=== PATIENT | male | born 1960 | race Caucasian/White ===

== ENCOUNTER 2018-07-10 15:26 | Inpatient (IN) | payer MEDICARE ==
[2018-07-10 15:36] VITALS: BMI 27.0
[2018-07-10] MEDS: Acetaminophen 325 MG TAB PO PRN (17:55)
[2018-07-10] MEDS: Carvedilol 25 MG TAB PO SCH (21:05)
[2018-07-10] MEDS: hydrALAZINE 25 MG TAB PO SCH (21:06)
[2018-07-10] MEDS: TUMERIC PO SCH (21:06)
[2018-07-10] MEDS: traMADol HCl 50 MG TAB PO PRN (21:07)
[2018-07-11] MEDS: Acetaminophen 325 MG TAB PO PRN ×3 (03:07→23:48)
[2018-07-11] MEDS: traMADol HCl 50 MG TAB PO PRN ×3 (03:08→23:49)
[2018-07-11 05:23] LABS: #Eosinphils 0.2 thou/uL (0.0-0.7); #Lymphocytes 0.7 thou/uL (1.20-3.40); #Monocytes 0.4 thou/uL (0.11-0.59); #Neutrophils 8.4 thou/uL (1.40-6.50); %Basophils 0.4 % (0.0-1.0); %Eosinophils 1.8 % (0.0-10.0); %Lymphocytes 7.3 % (21.0-51.0); %Monocytes 3.6 % (0.0-10.0); %Neutrophils 86.9 % (42.0-75.0); Hemoglobin 8.5 g/dL (14.0-18.0); Mean Corpuscular HGB CONC 32.1 g/dL (32.0-36.0); Mean Corpuscular Hemoglobin 31.4 pg (27.0-31.0); Mean Corpuscular Volume 97.7 fL (78.0-98.0); Mean Platelet Volume 8.1 fL (7.4-10.4); Platelet Count 170 thou/uL (130-400); RBC Distribution Width 12.9 % (11.5-14.5); White Blood Cell (WBC) Count 9.7 thou/uL (4.8-10.8)
[2018-07-11 05:40] LABS: ALT (SGPT) 10 U/L (8-55); AST (SGOT) 15 U/L (5-34); Albumin 2.9 g/dL (3.5-5.0); Alkaline Phosphatase 92 U/L (40-150); Anion Gap 17 mmol/L (10-20); BUN (Urea Nitrogen) 26 mg/dL (8.4-25.7); Bilirubin, Total 0.9 mg/dL (0.2-1.2); Calc. Creatinine Clearance 23 mL/min (70-130); Calcium 8.7 mg/dL (7.8-10.44); Carbon Dioxide 25 mmol/L (22-29); Chloride 94 mmol/L (98-107); Estimated GFR-MDRD 14; Globulin 3.6 g/dL (2.4-3.5); Glucose 208 mg/dL (70-105); Potassium 3.4 mmol/L (3.5-5.1); Protein, Total 6.5 g/dL (6.0-8.3); Sodium 133 mmol/L (136-145)
[2018-07-11] MEDS: Carvedilol 25 MG TAB PO SCH ×3 (08:48→21:31)
[2018-07-11] MEDS: cloNIDine 0.1mg/24 Hour PATCH TD SCH ×2 (08:49→10:12)
[2018-07-11] MEDS: Lisinopril 5 MG TAB PO SCH ×2 (08:49→10:13)
[2018-07-11] MEDS: Folic Acid/Vit B Comp W-C PO SCH ×2 (08:49→10:13)
[2018-07-11] MEDS: hydrALAZINE 25 MG TAB PO SCH ×4 (08:49→21:31)
[2018-07-11] MEDS: Gabapentin 100 MG CAP PO SCH ×2 (08:49→10:13)
[2018-07-11] MEDS: NIFEdipine XL 30 MG TAB PO SCH ×2 (08:50→10:14)
[2018-07-11] MEDS: TUMERIC PO SCH ×3 (08:50→21:32)
[2018-07-11] MEDS: Pioglitazone HCl 15 MG TAB PO SCH (08:50)
[2018-07-11] MEDS: Saccharomyces boulardii 250 MG CAP PO SCH ×2 (08:51→10:14)
[2018-07-11] MEDS ORDERED: Ondansetron ODT 4 MG TAB PO PRN (12:58)
[2018-07-11] MEDS: cloNIDine 0.1 MG TAB PO PRN ×2 (13:33→17:57)
[2018-07-11] MEDS: Ondansetron PF 4 MG/2 ML Vial SLOW IVP PRN (21:26)
--- NOTE | 2018-07-11 21:40 | RAD ---
CHEST ONE VIEW: 07/11/18 HISTORY: 57-year-old male with history of wheezing and right sided neck pain. COMPARISON: 07/04/18. There are progressive alveolar nodular parenchymal changes in the left lung, particularly the mid and lower lung zone as well the right mid lung zone, evidence for bilateral pneumonia. Minimal cardiomeg miguel. IMPRESSION: Bilateral worsening alveolar nodular parenchymal changes including the left mid and lower lung zone a nd right mid lung zone evidence for bilateral pneumonia. Cardiomegaly. Continued short term followup for complete clearing. POS: RRE
[2018-07-12] MEDS: Ondansetron PF 4 MG/2 ML Vial SLOW IVP PRN ×3 (04:11→18:00)
[2018-07-12 05:04] LABS: #Basophils 0.1 thou/uL (0.0-0.2); #Eosinphils 0.2 thou/uL (0.0-0.7); #Lymphocytes 0.8 thou/uL (1.20-3.40); #Monocytes 0.4 thou/uL (0.11-0.59); #Neutrophils 8.1 thou/uL (1.40-6.50); %Basophils 0.5 % (0.0-1.0); %Eosinophils 1.6 % (0.0-10.0); %Lymphocytes 8.2 % (21.0-51.0); %Monocytes 4.2 % (0.0-10.0); %Neutrophils 85.5 % (42.0-75.0); Hemoglobin 8.2 g/dL (14.0-18.0); Mean Corpuscular HGB CONC 33.2 g/dL (32.0-36.0); Mean Corpuscular Hemoglobin 32.1 pg (27.0-31.0); Mean Corpuscular Volume 96.7 fL (78.0-98.0); Mean Platelet Volume 7.2 fL (7.4-10.4); Platelet Count 150 thou/uL (130-400); RBC Distribution Width 13.2 % (11.5-14.5); Red Blood Cell (RBC) Count 2.56 mill/uL (4.70-6.10); White Blood Cell (WBC) Count 9.4 thou/uL (4.8-10.8)
[2018-07-12 05:22] LABS: Anion Gap 15 mmol/L (10-20); BUN (Urea Nitrogen) 26 mg/dL (8.4-25.7); Calc. Creatinine Clearance 22 mL/min (70-130); Calcium 8.9 mg/dL (7.8-10.44); Carbon Dioxide 27 mmol/L (22-29); Chloride 95 mmol/L (98-107); Estimated GFR-MDRD 14; Glucose 182 mg/dL (70-105); Potassium 3.2 mmol/L (3.5-5.1); Sodium 134 mmol/L (136-145)
[2018-07-12] MEDS: Carvedilol 25 MG TAB PO SCH ×2 (08:08→21:47)
[2018-07-12] MEDS: Folic Acid/Vit B Comp W-C PO SCH (08:10)
[2018-07-12] MEDS: Gabapentin 100 MG CAP PO SCH (08:10)
[2018-07-12] MEDS: hydrALAZINE 25 MG TAB PO SCH ×3 (08:11→21:46)
[2018-07-12] MEDS: Lisinopril 5 MG TAB PO SCH (08:11)
[2018-07-12] MEDS: TUMERIC PO SCH ×3 (08:12→21:47)
[2018-07-12] MEDS: NIFEdipine XL 30 MG TAB PO SCH (08:12)
[2018-07-12] MEDS: Pioglitazone HCl 15 MG TAB PO SCH (08:13)
[2018-07-12] MEDS: Saccharomyces boulardii 250 MG CAP PO SCH (08:13)
[2018-07-12] MEDS: traMADol HCl 50 MG TAB PO PRN ×2 (08:13→19:30)
[2018-07-12] MEDS: cloNIDine 0.1 MG TAB PO PRN (08:14)
[2018-07-12] MEDS: Acetaminophen 325 MG TAB PO PRN ×2 (08:14→19:29)
--- NOTE | 2018-07-12 08:16 | RAD ---
CHEST PA AND LATERAL: HISTORY: A 57-year-old male with a history of congestive heart failure. FINDINGS: Cardiomegaly with bilateral vascular congestion. Alveolar nodular parenchymal changes in the left mi d and lower lung zones and also in the right upper lung zone, stable from 07/11/2018 single portable study. IMPRESSION: Asymmetric alveolar parenchymal changes in the left mid and lower lung zone and right upper mid lung zone with cardiomegaly and vascular congestion showing some worsening when compared to 07/04/2018, st able from 07/11/2018. POS: KAMALA
[2018-07-12] MEDS ORDERED: Sodium Chloride 0.9% 10 ML ONE ×2 (10:06→17:51)
--- NOTE | 2018-07-12 18:55 | PRG ---
DATE OF SERVICE: 07/12/2018 SUBJECTIVE: Patient is nauseated this morning, but not particular respiratory distress; however, he has agreed to dialysis as his chest x-ray still shows significant bilateral pulmonary congestion. OBJECTIVE: VITAL SIGNS: Temperature is 97.9, pulse 53, respirations 20, O2 sats 94% on 2 liters, blood pressure 201/88. LUNGS: Show bibasilar rales. CARDIAC: Regular rhythm. SKIN AND EXTREMITIES: Show no edema, clubbing, cyanosis. LABORATORY DATA: His potassium down to 3.2, creatinine is 4.49, bicarbonate 27, chloride 95, glucose is 164-191. ASSESSMENT: 1. Persistent fluid overload secondary to inadequate dialysis. 2. Hypokalemia secondary to recurrent vomiting. 3. Severe hypertension exacerbated by vomiting. PLAN: Continue home medications. Give IV Zofran, transport to [facility] for emergent dialysis after dis cussion with the patient and Dr. Bowman.
--- NOTE | 2018-07-12 19:16 | PRG ---
DATE OF SERVICE: 07/11/2018 SUBJECTIVE: The patient is having recurrent nausea and vomiting, dyspnea, mild respiratory distress requiring oxygen. No chest pains or headaches. OBJECTIVE: VITAL SIGNS: Blood pressure is 211/92, pulse 57, respirations 20, O2 sats 94% on 2 liters. LUNGS: Show bibasilar rales, worse on the left side. A chest x-ray shows significantly increased pu lmonary congestion as compared to admission. ABDOMEN: Soft and nontender. ASSESSMENT: 1. Fluid overload secondary to inadequate fluid removal at dialysis. 2. Recurrent nausea secondary to . 3. Severe hypertension exacerbated by vomiting. PLAN: 1. Stress need to have more fluid removed. Start IV Zofran. Reiterated by the patient that he is n ot to be resuscitated, does not want to be back admitted to [place]. 2. Convince the patient to have dialysis in the a.m. Continue IV Zofran only. Continue blood press ure control with clonidine, hydralazine, amlodipine, and carvedilol.
--- NOTE | 2018-07-12 22:18 | HP ---
CHIEF COMPLAINT: Acute exacerbation of chronic renal failure with uremic poisoning, pulmonary edema, responding to aggressive dialysis, but with significant weakness and inability to maintain ADLs. HISTORY OF PRESENT ILLNESS: The patient is a 57-year-old white male with a long history of hypertens ion, diabetes with poor control with subsequent complication, end-stage renal disease on hemodialysis 3 times weekly as well as diabetic retinopathy, atrial fibrillation with a history of a left atrial thrombus, but with no CVA, but with severe peripheral vascular disease requiring amputation of the [facility] distal foot, who had refused dialysis and essentially had become suicidal and depressed, but even amari was convinced to go to [facility] where he was found to be uremic poisoning, aggressively di alyzed, slowly but surely improved, but became very weak and unable to maintain ADLs and was transfer red over to [facility]. Apparently, he had had some pulmonary infiltrates previously with a questionable history of pneumonia and was discharged on oral antibiotics of Levaquin 500 mg every other day in addition to his blood p ressure medicines of Coreg 25 twice daily, hydralazine 100 three times daily, lisinopril 5 daily, Pro cardia-XL 60 daily, and his diabetes medicine of Actos 30 daily, Florastor 250 mg daily, probiotic wa s given also on admission to [facility]. His white count was 8000, hemoglobin 9.3, platelets 188. Sodium is 132, potassium is 3.5, BUN is 42, creatinine is 5.0. Stool was guaiac negative. C. diff negative. Liver functions were normal. He is requiring dialysis on Friday, Friday, and Friday, has had some problems with volume overload, s hortness of breath as well as recurrent nausea and vomiting from uremic encephalopathy with a junctio nal cardiac arrhythmia. SOCIAL HISTORY: He lives alone. He has one daughter. He has a past history of severe ETOH abuse. No history of smoking. He is a DNR. Surrogate decision maker is his daughter. ALLERGIES: He has no known allergies. REVIEW OF SYSTEMS: HEENT: Denies any headaches. He has decreased vision secondary to diabetic reti nopathy. He has no hoarseness, sore throat. Pulmonary: He has occasional cough. He was initially coughing up a great deal of bloody sputum, but now is nonproductive. Cardiovascular: Denies any asher st pain, palpitations, dizziness, syncope. Gastrointestinal: He has recurrent nausea, vomiting, and diarrhea, felt to be due to uremic poisoning, which is improved, but still present. Genitourinary: Denies dysuria or hematuria. Has minimal urine output. Musculoskeletal: He has pain in his feet. Neurologic: He has severe neuropathy of the feet. PHYSICAL EXAMINATION: GENERAL: The patient is a middle-aged white male, appears chronically ill, in mild distress. He is oriented x3 and cooperative, but has been making irrational decisions, but denies suicidal attempts a t this time. VITAL SIGNS: Show him to have blood pressure of 182/84, temperature of 99, pulse 67, respirations 20 , O2 sats 96% on room air. HEENT: Pupils are equal, round, and reactive to light and accommodations. Sclerae are pale. Conjun ctivae are pale. Oral mucous membranes are dehydrated. NECK: Supple. There are no nodes or masses. JVPs are not elevated. LUNGS: Show bibasilar rales. No wheezes or rhonchi. CARDIAC: Shows slow regular rhythm. No gallops or murmurs. ABDOMEN: Soft, nontender. No masses or organomegaly. SKIN/EXTREMITIES: Showed decreased skin turgor. No edema, clubbing, or cyanosis. NEUROLOGICAL: Shows decreased sensation to pinprick in the feet. LABORATORY FINDINGS: White count 8000, hematocrit 29, hemoglobin 9. Sodium 132, potassium 3.5, chlo ride 95, bicarbonate 21, BUN 42, creatinine 0.7, albumin 3.0, globulin 3.9, AST 15, ALT 10, calcium 8 .9. ASSESSMENT: This is a 57-year-old white male with end-stage renal disease who has refused hemodialys is, developed uremic poisoning, now is back on dialysis. Still very weak, eating poorly, does have r ecurrent nausea and has rales on examination. He is being treated for pneumonia with Levaquin every other day. He is having no sputum production, fever or chills. He also is being treated aggressivel y for his hypertension, which has been uncontrolled of hydralazine, lisinopril, nifedipine, and cloni dine. He is on peptic ulcer prophylaxis with Protonix. PLAN: PT/OT. Continue hemodialysis 3 times weekly. Continue Levaquin every other day. Continue pr evious blood pressure medications and monitor closely. Give hand held nebulizers with DuoNeb q.i.d. and p.r.n. Stress the need to continue dialysis to maintain euvolemia. Prognosis is poor secondary to underlying condition and the patient's refusal to care for himself.
[2018-07-13] MEDS: Ondansetron PF 4 MG/2 ML Vial SLOW IVP PRN ×3 (00:16→16:52)
[2018-07-13] MEDS ORDERED: Sodium Chloride 0.9% 10 ML ONE ×2 (07:49→16:49)
[2018-07-13] MEDS: Saccharomyces boulardii 250 MG CAP PO SCH (08:01)
[2018-07-13] MEDS: NIFEdipine XL 30 MG TAB PO SCH (08:02)
[2018-07-13] MEDS: hydrALAZINE 25 MG TAB PO SCH ×3 (08:02→15:13)
[2018-07-13] MEDS: Lisinopril 5 MG TAB PO SCH (08:02)
[2018-07-13] MEDS: Gabapentin 100 MG CAP PO SCH (08:02)
[2018-07-13] MEDS: Folic Acid/Vit B Comp W-C PO SCH (08:03)
[2018-07-13] MEDS: TUMERIC PO SCH ×3 (08:03→20:19)
[2018-07-13] MEDS: Carvedilol 25 MG TAB PO SCH (08:03)
[2018-07-13] MEDS: Pioglitazone HCl 15 MG TAB PO SCH (08:03)
--- NOTE | 2018-07-13 08:06 | PRG ---
DATE OF SERVICE: 07/12/2018 SUBJECTIVE: The patient is a 57-year-old gentleman being seen for a sudden onset of pulmonary edema. No nausea, vomiting, or chest pain. The patient has had dyspnea on and off. PAST MEDICAL HISTORY: Reviewed. SOCIAL AND FAMILY HISTORY: Reviewed. ALLERGIES: Reviewed. PHYSICAL EXAMINATION: GENERAL: The patient is awake, alert, in mild to moderate distress. VITAL SIGNS: Afebrile, pulse 75, breathing 16, blood pressure 130/70. GENERAL APPEARANCE AND MENTAL STATUS: Fair. HEAD/NECK: Normocephalic. Atraumatic. EYES: EOMI. No deformity. EARS: Clear. No ulcers. NOSE: Intact. No lesions. MOUTH: Clear. No discharge. THROAT: Clear. No exudate. LUNGS: Clear. No crackles. CARDIAC: S1, S2. No rub. ABDOMEN: Benign. BS+. GENITALIA/RECTUM: Romano absent. BACK/EXTREMITIES: Edema 0+ Ulcer- NEUROLOGICAL: Alert and motor intact. SKIN: Rash- Bruise- LYMPHATICS: Edema- Ulcer- LABORATORY DATA: Show potassium was 3.8, creatinine 4.4. ASSESSMENT: 1. Stage 6 chronic kidney disease. We will plan dialysis. 2. Hypertension, stable. The patient can be discharged after dialysis. [facility]
--- NOTE | 2018-07-13 10:31 | PRG ---
DATE OF SERVICE: 07/13/2018 HISTORY OF PRESENT ILLNESS: Mr. Chahal is a very pleasant 57-year-old white male with end-stage re nal disease that missed some dialysis and had to be admitted acutely uremic. He was dialyzed at [facility] multiple times and eventually transferred down to [facility] for phys ical therapy and occupational therapy to increase his strength and his stamina. He still gets dialys is on Friday, and Friday, but he has been dialyzed every day this week. PHYSICAL EXAMINATION: VITAL SIGNS: Today reveal blood pressure is 128/82 now, last night it was 204/91, pulse 45-49, pulse 45-49, respirations 18-20, O2 sat 91%-93% on 2-2.5 liters per nasal cannula. GENERAL: This is a well-developed, well-nourished, very thin white male with cardiomegaly, congestiv e heart failure and coronary artery disease. HEENT: Reveals normocephalic, nontraumatic cranium. Pupils are equally round and reactive. Extraoc ular movements are intact. Nose and throat are slightly dry. NECK: Supple, without mass, nodes or bruits. LUNGS: Chest is clear to auscultation. No rales are heard on the right side, but rales in the left base are noted. No rhonchi or cough is noted. HEART: Reveals a regular rate and rhythm, but bradycardic. ABDOMEN: Obese, soft, nontender, without organomegaly. Normal bowel sounds are noted. No rebound o r guarding is noted. : Deferred. EXTREMITIES: Reveal no clubbing, cyanosis or edema. IMPRESSION: 1. Persistent fluid overload secondary to inadequate dialysis. 2. Hypokalemia secondary to vomiting. 3. Severe hypertension, much improved today. 4. End-stage renal disease. 5. Coronary artery disease with cardiomegaly. 6. Diabetes with poor control in the past. 7. Diabetic retinopathy. 8. History of atrial fibrillation with history of left atrial thrombus but no CVA. 9. Severe peripheral vascular disease with amputation of right distal foot. PLAN: 1. Continue to monitor the patient's diabetes with Accu-Cheks a.c. and at bedtime. 2. Continue to monitor the patient's respiratory status as far as fluid. 3. Continue to monitor patient for signs and symptoms of congestive heart failure. 4. Start the patient on some medication for anxiety depressive disorder. 5. Continue to monitor the patient's blood pressure closely. 6. Physical therapy and occupational therapy.
[2018-07-13] MEDS ORDERED: Escitalopram Oxalate 10 mg Tablet PO SCH (10:45)
[2018-07-13] MEDS: Escitalopram Oxalate 10 mg Tablet PO SCH (11:15)
[2018-07-13] MEDS: Calcium Carbonate 500 MG ChewTAB PO SCH ×3 (14:09→20:28)
[2018-07-13] MEDS: Acetaminophen 325 MG TAB PO PRN (14:09)
[2018-07-13] MEDS: traMADol HCl 50 MG TAB PO PRN (20:22)
[2018-07-14] MEDS: Acetaminophen 325 MG TAB PO PRN (00:10)
[2018-07-14] MEDS ORDERED: Sodium Chloride 0.9% 10 ML ONE (02:12)
[2018-07-14] MEDS: Ondansetron PF 4 MG/2 ML Vial SLOW IVP PRN ×2 (02:16→17:14)
[2018-07-14] MEDS: Pioglitazone HCl 15 MG TAB PO SCH (05:40)
[2018-07-14] MEDS: Calcium Carbonate 500 MG ChewTAB PO SCH ×3 (12:20→20:21)
[2018-07-14] MEDS: Folic Acid/Vit B Comp W-C PO SCH (12:20)
[2018-07-14] MEDS: NIFEdipine XL 30 MG TAB PO SCH (12:21)
[2018-07-14] MEDS: Lisinopril 5 MG TAB PO SCH (12:21)
[2018-07-14] MEDS: Saccharomyces boulardii 250 MG CAP PO SCH (12:21)
[2018-07-14] MEDS: Gabapentin 100 MG CAP PO SCH (12:21)
[2018-07-14] MEDS: Carvedilol 25 MG TAB PO SCH ×2 (12:23→20:21)
[2018-07-14] MEDS: TUMERIC PO SCH ×3 (12:23→20:22)
[2018-07-14] MEDS: traMADol HCl 50 MG TAB PO PRN ×2 (12:25→20:22)
--- NOTE | 2018-07-14 21:01 | PRG ---
DATE OF SERVICE: 07/14/2018 SUBJECTIVE: Mr. Chahal is a very pleasant 57-year-old white male with end- stage renal disease, who missed several days of dialysis and had to be admitted acutely to [facility], where he was emergently dialyzed. His potassium was extremely elevated. His creatinine was elevated. Basically, he was stabilized and now has been transferred down to [facility] for physical therapy and occupational therapy. The patient is going to dialysis today. He has dialysis on Friday, , Friday by Dr. Bowman and Dr. Luis Monsivais. The patient walked yesterday approximately 15 feet, was very weak and had significant balance problems. It is felt that he needs continued physical therapy and occupational therapy. His blood pressures have been low with vital signs this morning running in the low 90s. We did cut his carvedilol in half because his pulse was 40 to 45. His carvedilol was 25 mg, we have decreased that down to 12.5 mg b.i.d. We did pull off his clonidine patch last night also so that his blood pressure would bounce back. Blood pressure this afternoon is 113/55, 111/58, pulse is up in the 48 to 50 range. HEENT: Unremarkable Chest: Clear to A&P Heart: RRR without murmurs, gallops, or rubs Abdomen: positive bowel sounds in all quadrants. : deferred Extremities: No clubbing, Cyanosis or edema. Neuro: Oriented x 3 The patient tolerated dialysis fairly well today. He has no complaints. IMPRESSION: 1. Persistent fluid overload secondary to inadequate dialysis, much improved. 2. Uremia much improved. 3. Severe hypertension, much improved. 4. Hypotensive yesterday and bradycardic yesterday, so we did decrease his carvedilol from 25 mg b.i.d. to 12.5 mg b.i.d. 5. We did also pull off his clonidine patch in hopes that his blood pressure wound rebound. 6. End-stage renal disease, followed by Dr. Bowman and Dr. Monsivais, and he has hemodialysis on Friday, , and Friday. 7. Coronary artery disease with cardiomegaly. 8. Diabetes, poor control in the past. 9. Diabetic retinopathy. 10. History of atrial fibrillation. 11. History of left atrial thrombus, but no cerebrovascular accident. 12. Severe peripheral vascular disease, amputation of the right distal foot. PLAN: 1. Continue to monitor the patient's diabetes with Accu-Chek a.c. and nighttime. 2. We will monitor the patient's respiratory status. 3. We will monitor the patient for signs and symptoms of congestive heart failure. 4. Continue to monitor the patient's blood pressure and adjust medications as needed. 5. Continue physical therapy and occupational therapy. LABORATORY DATA: Revealed sugars have been improved with fasting this morning of 193 before breakfast, before lunch sugar was not done because the patient was at dialysis. We will continue to monitor closely and adjust his diabetic medications as needed. Job ID: [id number] [facility]
[2018-07-15] MEDS ORDERED: Sodium Chloride 0.9% 10 ML ONE ×2 (00:52→07:24)
[2018-07-15] MEDS: Ondansetron PF 4 MG/2 ML Vial SLOW IVP PRN ×2 (00:55→07:29)
[2018-07-15] MEDS: Acetaminophen 325 MG TAB PO PRN ×2 (01:00→20:57)
[2018-07-15] MEDS: Carvedilol 25 MG TAB PO SCH ×2 (08:47→20:54)
[2018-07-15] MEDS: Calcium Carbonate 500 MG ChewTAB PO SCH ×3 (08:47→20:54)
[2018-07-15] MEDS: Lisinopril 5 MG TAB PO SCH (08:48)
[2018-07-15] MEDS: Escitalopram Oxalate 10 mg Tablet PO SCH (08:48)
[2018-07-15] MEDS: Gabapentin 100 MG CAP PO SCH (08:48)
[2018-07-15] MEDS: Folic Acid/Vit B Comp W-C PO SCH (08:48)
[2018-07-15] MEDS: NIFEdipine XL 30 MG TAB PO SCH (08:49)
[2018-07-15] MEDS: Pioglitazone HCl 15 MG TAB PO SCH (08:49)
[2018-07-15] MEDS: Saccharomyces boulardii 250 MG CAP PO SCH (08:49)
[2018-07-15] MEDS: traMADol HCl 50 MG TAB PO PRN ×2 (08:50→20:55)
[2018-07-15] MEDS: TUMERIC PO SCH ×3 (08:52→20:55)
[2018-07-15] MEDS ORDERED: Insulin Glargine 10 UNITS in Pre-Filled Syringe 1 EACH SC SCH (09:45)
--- NOTE | 2018-07-15 11:17 | PRG ---
DATE OF SERVICE: 07/15/2018 HISTORY: The patient is a 57-year-old white male with end-stage renal disease, who missed some dialysis and had to be admitted acutely to [facility]. He had multiple dialysis and eventually was stabilized. He was transferred to [facility] for PT and OT because he was so weak and unable to really even stand. First day, he walked 4 feet, the next about 8 feet, and yesterday he walked 100 plus feet. His dialysis is on Friday, , and Friday. SUBJECTIVE: The patient states he feels slightly better, but his sugars are still little high and he feels tired from that. LABORATORY DATA: Laboratory reveals sugar yesterday morning of 193, before lunch it was missed because he was at dialysis, before supper 202, before bedtime 185, this morning fasting 199. We will add some Levemir to his present diabetic regimen. PHYSICAL EXAMINATION: VITAL SIGNS: Today reveal blood pressure 104/57, pulse 41, respirations 20, and O2 sat 94% on 3 L per nasal cannula. GENERAL: This is a well-developed, well-nourished white male, and in no apparent distress at this time. HEENT: Reveals normocephalic, nontraumatic cranium. Pupils equally round and reactive. Extraocular movements intact. Nose and throat are still slightly dry. NECK: Supple without masses bruits. CHEST: Clear to auscultation. No rales, no rhonchi, or no wheezes are heard today. HEART: Reveals a regular rate and rhythm, still bradycardic at 41 today, the highest he got yesterday was 48. ABDOMEN: Obese, soft, nontender without organomegaly. Normal bowel sounds are noted in all 4 quadrants. No rebound or guarding is noted. : Deferred. EXTREMITIES: No clubbing, cyanosis, or edema. IMPRESSION: 1. End-stage renal disease, on hemodialysis Friday, , and Friday by Dr. Bowman and Dr. Monsivais. 2. Hypertension, which is basically stable at this time. 3. Bradycardia. 4. Coronary artery disease with cardiomegaly. 5. Diabetes with poor control in the past. 6. Diabetic retinopathy. 7. Atrial fibrillation with history of left atrial thrombus, but no CVA. 8. Severe peripheral vascular disease with amputation of right distal foot. 9. Generalized weakness. PLAN: 1. Continue to monitor the patient's diabetes with Accu-Cheks before a meal and at bedtime. 2. Start Levemir 10 units subcu daily. 3. Monitor the patient's electrolytes through dialysis. 4. Continue to monitor the patient's blood pressure closely and adjust medications as needed. 5. Cut the patient's carvedilol from 12.5 mg down to 6.25 mg daily. 6. Monitor the patient's signs and symptoms of congestive heart failure. 7. Monitor the patient's heart rate for RVR. 8. Physical therapy and occupational therapy. Job ID: [id number]
[2018-07-15] MEDS ORDERED: Lantus 1000 UNITS/10 ML VIAL SC SCH (14:15)
[2018-07-16] MEDS: Calcium Carbonate 500 MG ChewTAB PO SCH ×3 (08:48→20:43)
[2018-07-16] MEDS ORDERED: Carvedilol 25 MG TAB PO SCH (10:15)
[2018-07-16 11:06] LABS: #Basophils 0.1 thou/uL (0.0-0.2); #Eosinphils 0.2 thou/uL (0.0-0.7); #Lymphocytes 0.7 thou/uL (1.20-3.40); #Monocytes 0.3 thou/uL (0.11-0.59); #Neutrophils 8.9 thou/uL (1.40-6.50); %Basophils 0.8 % (0.0-1.0); %Eosinophils 1.7 % (0.0-10.0); %Lymphocytes 6.6 % (21.0-51.0); %Monocytes 3.1 % (0.0-10.0); %Neutrophils 87.8 % (42.0-75.0); Hemoglobin 8.6 g/dL (14.0-18.0); Mean Corpuscular HGB CONC 33.4 g/dL (32.0-36.0); Mean Corpuscular Hemoglobin 31.8 pg (27.0-31.0); Mean Corpuscular Volume 95.4 fL (78.0-98.0); Mean Platelet Volume 7.7 fL (7.4-10.4); Platelet Count 198 thou/uL (130-400); Red Blood Cell (RBC) Count 2.69 mill/uL (4.70-6.10); White Blood Cell (WBC) Count 10.1 thou/uL (4.8-10.8)
[2018-07-16 11:18] LABS: Anion Gap 15 mmol/L (10-20); BUN (Urea Nitrogen) 25 mg/dL (8.4-25.7); Calc. Creatinine Clearance 22 mL/min (70-130); Calcium 9.2 mg/dL (7.8-10.44); Carbon Dioxide 28 mmol/L (22-29); Chloride 93 mmol/L (98-107); Estimated GFR-MDRD 14; Glucose 131 mg/dL (70-105); Sodium 133 mmol/L (136-145)
[2018-07-16 11:20] LABS: CKMB 1.3 ng/mL (0-6.6); Troponin I 0.038 ng/mL (< 0.028)
[2018-07-16] MEDS: Escitalopram Oxalate 10 mg Tablet PO SCH (11:23)
[2018-07-16] MEDS: Folic Acid/Vit B Comp W-C PO SCH (11:24)
[2018-07-16] MEDS: Gabapentin 100 MG CAP PO SCH (11:24)
[2018-07-16] MEDS: Lantus 1000 UNITS/10 ML VIAL SC SCH (11:25)
[2018-07-16] MEDS: Lisinopril 5 MG TAB PO SCH (11:26)
[2018-07-16] MEDS: NIFEdipine XL 30 MG TAB PO SCH (11:27)
[2018-07-16] MEDS: Pioglitazone HCl 15 MG TAB PO SCH (11:29)
[2018-07-16] MEDS: TUMERIC PO SCH ×3 (11:29→20:44)
[2018-07-16] MEDS: Saccharomyces boulardii 250 MG CAP PO SCH (11:30)
--- NOTE | 2018-07-16 11:33 | PRG ---
DATE OF SERVICE: 07/16/2018 SUBJECTIVE: This is a 57-year-old white male, who missed several hemodialysis sessions. He was found and brought to the emergency room, was found to be in uremic poisoning. He was admitted to the intensive care unit and had an emergency dialysis. Eventually, he was stabilized and transferred to [facility] for physical therapy and occupational therapy to increase his strength and his stamina. The patient had dialysis day before yesterday and was very weak. He was able to walk a little bit that day. Yesterday, he was hypotensive even though we have decreased his Coreg from 25 down to 12.5. Every time he tried to stand up, he became more hypotensive and was unable to do much therapy except for bed exercises. His blood pressure and his pulse basically still remain in the 40s and therefore, we have cut his Procardia XL 60 down to XL 30 and decreased his Coreg from 12.5 to 6.25 b.i.d. The patient is at dialysis at this time and those changes will be made prior to any more doses. Yesterday, we did increase his Levemir insulin and started at 10 mg once a day. His sugars have responded by having a fasting this morning of 145. His sugars yesterday were 199, 201, 196, 178, which were much better than the prior day. The prior day, almost all of his sugars were in the 200s. Overall, the patient is slowly improving and getting little stronger. PHYSICAL EXAMINATION: GENERAL: Revealed this is a well-developed, well-nourished white male in no apparent distress. VITAL SIGNS: Today revealed blood pressure this morning 99/52 with a pulse of 39, repeat was 110/58 with a pulse of 42. Yesterday, the highest blood pressure was 115/58 and the highest pulse was 42. As mentioned before, we did decrease his carvedilol down to 6.25 b.i.d. and decreased his Procardia down to 30 mg XL daily. HEART: Reveals regular rate and rhythm. CHEST: Clear to ausculation. No rales, rhonchi, or wheezes are heard. ABDOMEN: Soft and nontender without organomegaly. Normal bowel sounds are noted. : Deferred. EXTREMITIES: Revealed no clubbing, cyanosis, or edema. IMPRESSION: 1. Hypotension. 2. End-stage renal disease, on hemodialysis Friday, , and Friday. 3. Bradycardia. 4. Coronary artery disease with cardiomegaly. 5. Diabetes with poor control in the past, much improved. 6. Diabetic retinopathy. 7. Atrial fibrillation with history of left atrial thrombus, but no cerebrovascular accident. 8. Severe peripheral vascular disease with amputation of the right distal foot. 9. Generalized weakness. PLAN: 1. As mentioned before, decrease Coreg to 6.25 b.i.d. 2. Decrease Procardia XL to 30 mg daily. 3. Levemir was started 10 units subcutaneous once a day. 4. Encourage the patient to do physical therapy and occupational therapy. 5. Continue to monitor the patient's Accu-cheks for his diabetes a.c. and at bedtime. 6. Continue to monitor the patient's blood pressure closely. 7. Monitor the patient for signs and symptoms of congestive heart failure. 8. Monitor the patient's heart rate for RVR. 9. Continue physical therapy and occupational therapy. Job ID: [id number]
--- NOTE | 2018-07-16 11:46 | RAD ---
SINGLE VIEW OF THE CHEST: Comparison: 07-12-18 History: Lethargy. Decreased oxygen saturation. FINDINGS: Single view of the chest shows an enlarged but stable cardiomediastinal silhouette. Bilateral perihil ar opacities may represent pulmonary vascular congestion. There is no evidence of consolidation, mass or pleural effusion. IMPRESSION: Cardiomegaly and bilateral pulmonary vascular congestion. POS: [facility]
[2018-07-16] MEDS: Carvedilol 25 MG TAB PO SCH ×2 (11:49→20:41)
[2018-07-16 11:56] LABS: Potassium 2.9 mmol/L (3.5-5.1)
[2018-07-16] MEDS ORDERED: Sodium Chloride 0.9% 10 ML ONE (15:05)
[2018-07-16] MEDS: Ondansetron PF 4 MG/2 ML Vial SLOW IVP PRN (15:09)
[2018-07-16] MEDS: Acetaminophen 325 MG TAB PO PRN (18:59)
[2018-07-16] MEDS: traMADol HCl 50 MG TAB PO PRN (18:59)
[2018-07-17] MEDS: Calcium Carbonate 500 MG ChewTAB PO SCH ×3 (09:00→20:53)
[2018-07-17] MEDS: Saccharomyces boulardii 250 MG CAP PO SCH (09:01)
[2018-07-17] MEDS: Escitalopram Oxalate 10 mg Tablet PO SCH (09:03)
[2018-07-17] MEDS: Gabapentin 100 MG CAP PO SCH (09:04)
[2018-07-17] MEDS: Carvedilol 25 MG TAB PO SCH ×2 (09:04→20:52)
[2018-07-17] MEDS: Lisinopril 5 MG TAB PO SCH (09:07)
[2018-07-17] MEDS: Pioglitazone HCl 15 MG TAB PO SCH (09:09)
[2018-07-17] MEDS: TUMERIC PO SCH ×3 (09:10→20:53)
[2018-07-17] MEDS: Folic Acid/Vit B Comp W-C PO SCH (09:17)
[2018-07-17] MEDS: NIFEdipine XL 30 MG TAB PO SCH ×2 (09:18→10:03)
[2018-07-17] MEDS: Lantus 1000 UNITS/10 ML VIAL SC SCH (09:24)
--- NOTE | 2018-07-17 16:41 | PRG ---
DATE OF SERVICE: 07/17/2018 Mr. Chahal is a 57-year-old, very pleasant, white male, who missed several hemodialysis sessions and was found at home confused, lethargic, and uremic. He was brought to the emergency intensive care unit. Eventually, he was stabilized and recovered. He was transferred to [facility] because of extreme weakness. He was transferred there for physical therapy and occupational therapy. SUBJECTIVE: The patient states he feels good except he has extreme weakness, and his speech is somewhat slurred. He was thought to have some weakness on his left side, but on my examination, he does not. The patient was seen today about 12:30, and he states he is feeling better, but he is still very weak. His blood pressure is much improved after we cut his Coreg from 25 down to 6.25 and his Procardia from 60 to 30. His blood pressure is running 120 to 130 systolic. His pulse is up from 39 to 40 up to 48 to 52. He states he feels much better. He is just very weak. I did talk with Physical Therapy, and they said this morning, they just did bed exercise because when he sat down on the side of the bed, he was still very weak. We will try to continue to correct his blood pressure and his medications. Adjust his medications when his blood pressure is so low. He is supposed to have dialysis again tomorrow. They have not pulled off a lot of fluid because his blood pressure has been low. He has begun to collect some fluids, and he does have cardiomegaly and has had some congestive heart failure problems. Hopefully, his blood pressure will be better, and they can pull off more fluids tomorrow. PHYSICAL EXAMINATION: VITAL SIGNS: At this time reveal blood pressure 130/67, pulse 52, respirations about 16, and O2 sat 96% on 4 L. GENERAL: This is a well-developed, well-nourished, white male, in no apparent distress at this time. He does have slurred speech, but he has no facial weakness. HEENT: Reveals normocephalic, nontraumatic cranium. The pupils are equally round and reactive. Extraocular movements are intact. Nose and throat are dry, but clear. NECK: Supple without masses, nodes, or bruits. CHEST: Clear to auscultation. No rales, rhonchi, or wheezes are heard. HEART: Reveals a regular rate and rhythm without murmurs, gallops, or rubs. ABDOMEN: Soft, nontender without organomegaly. Normal bowel sounds are noted. No rebound or guarding is noted. : Deferred. EXTREMITIES: Reveal no clubbing, cyanosis, or edema. IMPRESSION: 1. Hypotension, much improved. 2. Bradycardia, much improved. 3. End-stage renal disease, on hemodialysis Friday, , and Friday, and the patient only had 0.4 liters taken off on . 4. Coronary artery disease with cardiomegaly according to the chest x-ray with pulmonary vascular congestion. 5. Diabetes with poor control in the past, which is much improved. 6. Diabetic retinopathy. 7. History of atrial fibrillation with left atrial thrombus, but no cerebrovascular accident. 8. Severe peripheral vascular disease with amputation of the right distal foot. 9. Generalized weakness. PLAN: 1. Continue present Coreg at 6.25 b.i.d., and Procardia XL at 30 mg. 2. Continue Levemir 10 units subcu each day. 3. Encourage the patient to exercise while on bed over the weekend since he will not get therapy. 4. Continue to monitor the patient's Accu-Cheks a.c. and at bedtime. 5. Monitor the patient's blood pressure closely. 6. Monitor the patient for signs and symptoms of congestive heart failure. 7. Monitor the patient's heart rate for RVR. 8. Continue PT and OT. Job ID: [id number]
[2018-07-18] MEDS: Pioglitazone HCl 15 MG TAB PO SCH (13:20)
[2018-07-18] MEDS: Folic Acid/Vit B Comp W-C PO SCH (13:20)
[2018-07-18] MEDS: NIFEdipine XL 30 MG TAB PO SCH (13:20)
[2018-07-18] MEDS: Saccharomyces boulardii 250 MG CAP PO SCH (13:21)
[2018-07-18] MEDS: Lisinopril 5 MG TAB PO SCH (13:21)
[2018-07-18] MEDS: Carvedilol 25 MG TAB PO SCH (13:21)
[2018-07-18] MEDS: Gabapentin 100 MG CAP PO SCH (13:21)
[2018-07-18] MEDS: Escitalopram Oxalate 10 mg Tablet PO SCH (13:22)
[2018-07-18] MEDS: Calcium Carbonate 500 MG ChewTAB PO SCH ×3 (13:22→20:26)
[2018-07-18] MEDS: Lantus 1000 UNITS/10 ML VIAL SC SCH (13:24)
[2018-07-18] MEDS: TUMERIC PO SCH ×3 (13:33→20:26)
--- NOTE | 2018-07-18 16:38 | PRG ---
DATE OF SERVICE: 07/18/2018 Mr. Chahal is a very pleasant 57-year-old white male, who missed several hemodialysis sessions and was found very confused and uremic at home. He was brought to the Intensive Care Unit at [facility], admitted, placed on BiPAP. Eventually, he was stabilized and had emergent dialysis for several days. Eventually, he was stabilized and transferred to [facility] for extreme weakness. He is here for physical therapy and occupational therapy. SUBJECTIVE: The patient states he feels a little bit better today. His voice is not slurred, but he continues to have significant weakness. He has no complaints today. He did have dialysis this morning and the nurse reports that Dr. Monsivais recommended stopping his Coreg. He is still on Procardia XL 30. OBJECTIVE: VITAL SIGNS: Vital signs today revealed blood pressure 130/67, pulse 48, respirations 20, and O2 saturation 96% on 2.5 L. GENERAL: This is a well-developed, well-nourished, very pleasant white male, in no apparent distress at this time. HEENT: Reveals normocephalic and nontraumatic cranium. Pupils are equally round and reactive. Extraocular movements are intact. Nose and throat are slightly dry. NECK: Supple without masses, nodes, or bruits. CHEST: Clear to auscultation. No rales, rhonchi, or wheezes are heard. HEART: Reveals a regular rate and rhythm without murmurs, gallops, or rubs. ABDOMEN: Soft, nontender without organomegaly. Normal bowel sounds are noted. No rebound or guarding is noted. : Deferred. EXTREMITIES: Reveal no clubbing, cyanosis, or edema. ASSESSMENT: 1. Hypotension, much improved. 2. Bradycardia, improved to 48. 3. End-stage renal disease, on hemodialysis on Friday, , and Friday. The patient states he had 3 L taken off today, this morning. 4. Coronary artery disease with cardiomegaly. 5. Diabetes with poor control, but much improved. 6. Diabetic retinopathy. 7. History of atrial fibrillation with left atrial thrombus, but no cerebrovascular accident. 8. Severe peripheral vascular disease with amputation of the right distal foot. 9. Generalized weakness. PLAN: 1. We will discontinue Coreg per Dr. Monsivais's recommendation. 2. Continue Procardia XL 30. 3. Continue Levemir 10 units subcu each day. 4. Encourage the patient to exercise and get out of bed as much as possible. 5. Continue to monitor the patient's Accu-Cheks a.c. and at bedtime. 6. Monitor the patient's blood pressure closely and adjust medications as needed. 7. Continue to monitor the patient for signs and symptoms of congestive heart failure. 8. Monitor the patient's heart rate for RVR. 9. Continue PT and OT. Job ID: [id number]
[2018-07-18] MEDS: traMADol HCl 50 MG TAB PO PRN (20:29)
[2018-07-18] MEDS: Acetaminophen 325 MG TAB PO PRN (20:29)
[2018-07-19] MEDS: Lantus 1000 UNITS/10 ML VIAL SC SCH (08:35)
[2018-07-19] MEDS: NIFEdipine XL 30 MG TAB PO SCH (08:36)
[2018-07-19] MEDS: Saccharomyces boulardii 250 MG CAP PO SCH (08:36)
[2018-07-19] MEDS: Pioglitazone HCl 15 MG TAB PO SCH (08:36)
[2018-07-19] MEDS: Folic Acid/Vit B Comp W-C PO SCH (08:36)
[2018-07-19] MEDS: Lisinopril 5 MG TAB PO SCH (08:37)
[2018-07-19] MEDS: TUMERIC PO SCH ×3 (08:37→20:36)
[2018-07-19] MEDS: Gabapentin 100 MG CAP PO SCH (08:37)
[2018-07-19] MEDS: Escitalopram Oxalate 10 mg Tablet PO SCH ×2 (08:38→20:37)
[2018-07-19] MEDS: Calcium Carbonate 500 MG ChewTAB PO SCH ×3 (08:39→20:37)
[2018-07-19] MEDS: cloNIDine 0.1 MG TAB PO PRN (16:20)
[2018-07-19] MEDS: traMADol HCl 50 MG TAB PO PRN (20:38)
--- NOTE | 2018-07-20 07:51 | PRG ---
DATE OF SERVICE: 07/19/2018 Mr. Chahal is a 57-year-old white male, patient of mine, who missed some hemodialysis sessions, was found to be very confused and uremic at home. [place] [facility], and placed on BiPAP in the ICU. He was stabilized and eventually had emergent dialysis for several days. Eventually, he was stabilized and transferred to [facility] because of extreme weakness. He is here for physical therapy and occupational therapy. He also continues [facility], on dialysis on Friday, , and Friday. SUBJECTIVE: The patient states he feels a little bit better, and his blood pressure has been a little high today. We did end up stopping his carvedilol because of recommendation by Dr. Monsivais. OBJECTIVE: VITAL SIGNS: Today revealed blood pressure 184/86 this evening, this morning it was 130/67. Pulse 46 to 49, respirations 20, and O2 saturation 93% to 95% on 2.5 L. GENERAL: This is a well-developed, well-nourished, pleasant white male, in no apparent distress at this time. HEENT: Reveals normocephalic and nontraumatic cranium. Pupils are equally round and reactive. Extraocular movements are intact. Nose and throat are still dry. NECK: Supple without masses, nodes, or bruits. CHEST: Clear to auscultation. No rales or rhonchi are heard. Even in the base the patient has no crackles. HEART: Reveals a regular rate and rhythm. ABDOMEN: Soft and nontender without organomegaly. Normal bowel sounds are noted. No rebound or guarding is noted. : Deferred. EXTREMITIES: Reveal left forearm fistula. ASSESSMENT: 1. Hypotension, improved, now hypertensive. 2. Bradycardia, improved to 47 to 49. 3. End-stage renal disease, on hemodialysis on Friday, , and Friday at [facility]. 4. Coronary artery disease with cardiomegaly. 5. Diabetes under poor control, but much improved. 6. Diabetic retinopathy. 7. History of atrial fibrillation with left atrial thrombus, but no cerebrovascular accident. 8. Severe peripheral vascular disease with amputation of the right distal foot. 9. Generalized weakness. PLAN: 1. We will discontinue the Coreg per Dr. Monsivais's recommendation. 2. Continue Procardia XL 30. 3. Continue Levemir 10 units subcu each day. 4. Encourage the patient to exercise and get out of bed as much as possible. 5. Continue to monitor the patient's Accu-Cheks a.c. and at bed time. 6. Continue to monitor the patient's blood pressure and adjust medications as needed. 7. Continue to monitor the patient for signs and symptoms of congestive heart failure. 8. Monitor the patient's heart rate for RVR. 9. Continue physical therapy and occupational therapy. Job ID: [id number]
[2018-07-20] MEDS: Calcium Carbonate 500 MG ChewTAB PO SCH ×3 (08:12→19:51)
[2018-07-20] MEDS: Folic Acid/Vit B Comp W-C PO SCH (08:13)
[2018-07-20] MEDS: Gabapentin 100 MG CAP PO SCH (08:13)
[2018-07-20] MEDS: Lantus 1000 UNITS/10 ML VIAL SC SCH (08:14)
[2018-07-20] MEDS: Lisinopril 5 MG TAB PO SCH (08:15)
[2018-07-20] MEDS: NIFEdipine XL 30 MG TAB PO SCH (08:15)
[2018-07-20] MEDS: TUMERIC PO SCH ×3 (08:16→19:58)
[2018-07-20] MEDS: Saccharomyces boulardii 250 MG CAP PO SCH (08:16)
[2018-07-20] MEDS: Pioglitazone HCl 15 MG TAB PO SCH (08:16)
--- NOTE | 2018-07-20 11:00 | PRG ---
DATE OF SERVICE: 07/20/2018 HISTORY: Mr. Chahal is a 57-year-old white male, who unfortunately missed a couple of hemodialysis sessions, found to be very confused and uremic at home. He was taken to the intensive care unit at [facility], admitted, and placed on BiPAP in the ICU. Stabilized eventually, had emergent dialysis for several days. He was stabilized and transferred to [facility] because of his extreme weakness. He is here for physical therapy and occupational therapy. He continues on [facility] dialysis on Friday, , and Friday. SUBJECTIVE: The patient states he feels a little bit better today, but still very tired. He is looking forward to his therapy at [address] Monsivais recommended we stop his carvedilol, which we did. Blood pressure has increased and his pulse is still at 48 to 49. OBJECTIVE: VITAL SIGNS: Today reveal blood pressure this morning 159/85, pulse 47, respirations 20, O2 saturation 91% to 92% on 3.5L. Accu-Cheks today reveal fasting blood sugar this morning was 132, blood sugar last night before bedtime 138, before supper 127, before lunch 107, before breakfast yesterday morning 114. Sugars are much improved and under much better control. GENERAL: This is a well-developed, well-nourished, white male, in no apparent distress at this time. HEENT: Reveals normocephalic and nontraumatic cranium. Pupils are equally round and reactive. Extraocular movements are intact. Nose and throat are slightly dry, but clear. NECK: Supple without masses, nodes, or bruits. CHEST: Clear to auscultation. No rales are heard especially in the bases. No cough is noted. HEART: Reveals a regular rate and rhythm without murmurs, gallops, or rubs. ABDOMEN: Soft and nontender, slightly obese without organomegaly. Normal bowel sounds are noted in all 4 quadrants. No rebound or guarding is noted. : Deferred. EXTREMITIES: Reveal left forearm fistula. No clubbing, cyanosis, or edema is noted in the lower extremities. ASSESSMENT: 1. Hypertension with hypotensive episodes 2. Bradycardia, with pulse is in the 47 to 50. 3. End-stage renal disease, on hemodialysis on Friday, , and Friday by Dr. Monsivais. 4. Coronary artery disease with cardiomegaly. 5. Diabetes under much better control. 6. Diabetic retinopathy and diabetic nephropathy. 7. History of atrial fibrillation with past history of left atrial thrombus, but no cerebrovascular accident. 8. Severe peripheral vascular disease with amputation of the right distal foot. 9. Generalized weakness. PLAN: 1. Continue Procardia XL 30. (Cardedilol stopped few days ago) 2. Continue Levemir 10 units subcutaneous each day. 3. Encourage the patient to get out of bed and sit in the chair as much as possible. 4. Continue to monitor the patient's Accu-Cheks both a.c. and at bedtime and adjust medications as needed. 5. Continue to follow the patient's blood pressure closely. 6. Follow the patient's pulse. 7. Monitor the patient for signs and symptoms of congestive heart failure. 8. Continue physical therapy and occupational therapy. Job ID: [id number] MTDD
[2018-07-20] MEDS: traMADol HCl 50 MG TAB PO PRN (19:58)
[2018-07-20] MEDS: Escitalopram Oxalate 10 mg Tablet PO SCH (19:59)
[2018-07-21] MEDS: traMADol HCl 50 MG TAB PO PRN ×2 (04:44→20:16)
[2018-07-21] MEDS: Calcium Carbonate 500 MG ChewTAB PO SCH ×4 (09:05→20:15)
[2018-07-21] MEDS: Folic Acid/Vit B Comp W-C PO SCH ×2 (10:06→13:15)
[2018-07-21] MEDS: TUMERIC PO SCH ×5 (10:06→20:16)
[2018-07-21] MEDS: Gabapentin 100 MG CAP PO SCH ×2 (10:06→13:15)
[2018-07-21] MEDS: NIFEdipine XL 30 MG TAB PO SCH ×2 (10:07→13:17)
[2018-07-21] MEDS: Lantus 1000 UNITS/10 ML VIAL SC SCH ×2 (10:07→13:15)
[2018-07-21] MEDS: Lisinopril 5 MG TAB PO SCH ×2 (10:07→13:18)
[2018-07-21] MEDS: Pioglitazone HCl 15 MG TAB PO SCH ×2 (10:08→13:16)
[2018-07-21] MEDS: Saccharomyces boulardii 250 MG CAP PO SCH ×2 (10:09→13:16)
[2018-07-21] MEDS: Escitalopram Oxalate 10 mg Tablet PO SCH (20:16)
[2018-07-22] MEDS: Lantus 1000 UNITS/10 ML VIAL SC SCH (08:53)
[2018-07-22] MEDS: Lisinopril 5 MG TAB PO SCH (08:54)
[2018-07-22] MEDS: Gabapentin 100 MG CAP PO SCH (08:54)
[2018-07-22] MEDS: Saccharomyces boulardii 250 MG CAP PO SCH (08:54)
[2018-07-22] MEDS: NIFEdipine XL 30 MG TAB PO SCH (08:54)
[2018-07-22] MEDS: Folic Acid/Vit B Comp W-C PO SCH (08:54)
[2018-07-22] MEDS: Calcium Carbonate 500 MG ChewTAB PO SCH ×3 (08:55→20:01)
[2018-07-22] MEDS: TUMERIC PO SCH ×3 (08:55→20:01)
[2018-07-22] MEDS: Pioglitazone HCl 15 MG TAB PO SCH (08:55)
[2018-07-22 18:40] VITALS: TEMP 98.3
[2018-07-22] MEDS ORDERED: cloNIDine 0.1 MG TAB PO PRN (18:54)
[2018-07-22] MEDS: traMADol HCl 50 MG TAB PO PRN (20:03)
[2018-07-22] MEDS: Escitalopram Oxalate 10 mg Tablet PO SCH (20:03)
[2018-07-22 20:30] VITALS: BP 131/67
--- NOTE | 2018-07-23 12:34 | DIS ---
DATE OF ADMISSION: 07/10/2018 DATE OF DISCHARGE: 07/22/2018 HISTORY OF PRESENT ILLNESS: This is a well-developed, well-nourished 57-year-old white male, who unfortunately missed some hemodialysis sessions and was found confused and uremic at his home. Taken to [facility] ER and admitted to the ICU and placed on BiPAP for respiratory distress and had emergent dialysis. Eventually, he was stabilized and transferred to [facility] because of his extreme weakness. He was transferred here for physical therapy and occupational therapy. Subjectively, the patient states he feels a little tired and so weak that he cannot get out of bed. As noted, his pulse previously in the early of the week was in the 40s. We decreased and eventually stopped his carvedilol and cut his Procardia in half. His pulses were in the 50s and then today, his pulse has been in 37 and 38. His blood pressure is low most of the time, but after dialysis, which he had this morning, it was elevated. EKG was done, which confirmed bradycardia of 37 and 38, most likely complete heart block. The patient is adamant about not going back to [facility]. He wishes to go to [facility] for Cardiology. PHYSICAL EXAMINATION: VITAL SIGNS: Revealed last blood pressure 120/59, pulse 37-38, respirations 16, and O2 saturation without oxygen is 72% to 74% and with oxygen at 2.5 L goes back up to 90% to 92%. GENERAL: This is a well-developed, well-nourished, very pleasant white male, who is adamant about not going back to [facility]. HEENT: Reveals normocephalic and nontraumatic cranium. Pupils equally round, reactive. Extraocular movements intact. Nose and throat are clear, but slightly dry. NECK: Supple without masses, nodes, or bruits. CHEST: Clear to auscultation. No rales, no rhonchi are noted. No wheezes are heard. On chest x-ray, the patient does have cardiomegaly. HEART: Reveals bradycardia 37-38 palpated. No murmurs, gallops, or rubs are noted. ABDOMEN: Slightly obese, soft, nontender without organomegaly. No rebound or guarding is noted. : Deferred. EXTREMITIES: Reveal no clubbing, no cyanosis, no edema. The patient does have a fistula in his left forearm, also dialysis fistula. His analytics intern is Dr. Monsivais and Dr. Bowman. ASSESSMENT: 1. Bradycardia with complete heart block. 2. The patient is asymptomatic. He is not having any chest pain or shortness of breath. 3. End-stage renal disease, on hemodialysis on Friday, , and Friday by Dr. Monsivais and Dr. Bowman at [facility]. 4. Coronary artery disease with cardiomegaly. 5. Diabetes under much improved control. 6. Diabetic retinopathy. 7. Diabetic nephropathy. 8. Diabetic neuropathy. 9. History of atrial fibrillation in the past with left atrial thrombus, but no cerebrovascular accident. 10. Severe peripheral vascular disease with amputation of right distal foot. 11. Generalized weakness. PLAN: 1. The patient's carvedilol has been stopped several days ago. 2. The patient's Procardia XL has been cut in half to 30. 3. The patient is on Levemir 10 units subcu each day. 4. The patient is asymptomatic, but his pulse is 37, he may need a pacemaker. 5. The patient needs to be a higher-level of care, but refuses to go to [facility]. 6. The patient has labile hypertension with his blood pressures typically low, but then right after dialysis, they go about 180-200 systolic. 7. Monitor the patient for signs and symptoms of congestive heart failure. 8. Continue PT and OT. 9. The patient will be transferred to [facility] for further cardiac evaluation. Job ID: [id number]
== END 2018-07-22 21:25 | disposition short-term general hospital (02) | DRG 640 ==
LOC: NAV ACUTE 15:26
PROVIDERS: ADMIT Internal Medicine; ATTEND Internal Medicine
DX: E87.70 Fluid overload, unspecified (principal); J18.9 Pneumonia, unspecified organism; N18.6 End stage renal disease; I12.0 Hypertensive chronic kidney disease with stage 5 chronic kidney disease or end stage renal disease; Z99.2 Dependence on renal dialysis; E11.22 Type 2 diabetes mellitus with diabetic chronic kidney disease; Z66 Do not resuscitate; R00.1 Bradycardia, unspecified; I25.10 Atherosclerotic heart disease of native coronary artery without angina pectoris; E11.21 Type 2 diabetes mellitus with diabetic nephropathy; Z89.431 Acquired absence of right foot; I95.9 Hypotension, unspecified; I48.91 Unspecified atrial fibrillation; E87.6 Hypokalemia; I51.7 Cardiomegaly; E11.51 Type 2 diabetes mellitus with diabetic peripheral angiopathy without gangrene; E11.319 Type 2 diabetes mellitus with unspecified diabetic retinopathy without macular edema
CPT/HCPCS: 36415; 36416; 71045; 71046; 80048; 80053; 82553; 84484; 85025; 94640; G8978-GP-CK; G8979-GP-CI; J1815; J2405; J7620; Q0162

== ENCOUNTER 2018-07-27 18:59 | Inpatient (IN) | payer MEDICARE ==
[2018-07-27] MEDS ORDERED: Ondansetron ODT 4 MG TAB PO PRN (19:53)
[2018-07-27] MEDS ORDERED: ACETAMINOPHEN 650 MG PO PRN (19:53)
[2018-07-27] MEDS ORDERED: Loperamide HCl 2 MG CAP PO PRN (19:55)
[2018-07-27] MEDS: Apixaban 5 MG TAB PO SCH (20:32)
[2018-07-27] MEDS: traMADol HCl 50 MG TAB PO PRN (20:32)
[2018-07-27] MEDS: Escitalopram Oxalate 10 mg Tablet PO SCH (20:32)
[2018-07-27] MEDS: CALCIUM CARBONATE PO SCH (20:32)
[2018-07-27] MEDS: SIMETHICONE PO SCH (20:32)
[2018-07-27] MEDS ORDERED: Acetaminophen 325 MG TAB PO PRN (22:12)
[2018-07-28] MEDS: TUMERIC PO SCH ×4 (01:59→21:02)
[2018-07-28 05:44] LABS: %Basophils 1.7 % (0.0-1.0); %Eosinophils 6.9 % (0.0-10.0); %Monocytes 5.9 % (0.0-10.0); %Neutrophils 60.5 % (42.0-75.0); Mean Corpuscular HGB CONC 32.8 g/dL (32.0-36.0); Mean Corpuscular Volume 97.7 fL (78.0-98.0); Mean Platelet Volume 6.6 fL (7.4-10.4); Platelet Count 184 thou/uL (130-400); RBC Distribution Width 16.7 % (11.5-14.5); Red Blood Cell (RBC) Count 2.81 mill/uL (4.70-6.10)
[2018-07-28 05:45] LABS: #Basophils 0.1 thou/uL (0.0-0.2); #Eosinphils 0.3 thou/uL (0.0-0.7); #Lymphocytes 1.2 thou/uL (1.20-3.40); #Monocytes 0.3 thou/uL (0.11-0.59)
[2018-07-28 05:55] LABS: BUN (Urea Nitrogen) 38 mg/dL (8.4-25.7); Bilirubin, Total 0.8 mg/dL (0.2-1.2); Calc. Creatinine Clearance 13 mL/min (70-130); Calcium 9.6 mg/dL (7.8-10.44); Carbon Dioxide 26 mmol/L (22-29); Chloride 97 mmol/L (98-107); Estimated GFR-MDRD 8; Glucose 98 mg/dL (70-105); Potassium 4.8 mmol/L (3.5-5.1); Sodium 134 mmol/L (136-145)
[2018-07-28 05:56] LABS: ALT (SGPT) 14 U/L (8-55); AST (SGOT) 15 U/L (5-34); Albumin 2.9 g/dL (3.5-5.0); Alkaline Phosphatase 75 U/L (40-150); Globulin 3.7 g/dL (2.4-3.5); Protein, Total 6.6 g/dL (6.0-8.3)
[2018-07-28 05:57] LABS: Anion Gap 26 mmol/L (10-20)
[2018-07-28] MEDS: Lisinopril 10 MG TAB PO SCH (12:27)
[2018-07-28] MEDS: hydrALAZINE 25 MG TAB PO PRN (12:28)
[2018-07-28] MEDS: Pioglitazone HCl 15 MG TAB PO SCH (12:28)
[2018-07-28] MEDS: Gabapentin 100 MG CAP PO SCH (12:28)
[2018-07-28] MEDS: Apixaban 5 MG TAB PO SCH ×2 (12:28→21:01)
[2018-07-28] MEDS: Saccharomyces boulardii 250 MG CAP PO SCH (12:28)
[2018-07-28] MEDS: Amlodipine 10 MG TAB PO SCH (12:28)
[2018-07-28] MEDS: Folic Acid/Vit B Comp W-C PO SCH (12:28)
[2018-07-28] MEDS: Lantus 1000 UNITS/10 ML VIAL SC SCH (12:29)
[2018-07-28] MEDS: SIMETHICONE PO SCH ×3 (12:30→20:56)
[2018-07-28] MEDS: CALCIUM CARBONATE PO SCH ×3 (12:30→20:56)
[2018-07-28] MEDS: Escitalopram Oxalate 10 mg Tablet PO SCH (21:01)
[2018-07-28] MEDS: traMADol HCl 50 MG TAB PO PRN (21:02)
--- NOTE | 2018-07-28 21:58 | HP ---
HISTORY OF PRESENT ILLNESS: Mr. Chahal is a very pleasant 57-year-old white male, who was previously in the hospital after having significant uremia after missing a couple of renal dialysis sessions. He was admitted initially to [facility] ICU, placed on BiPAP and emergently diuresed. He recovered, but he was extremely weak. He was transferred to [facility] for physical therapy and occupational therapy. There, he had significant problems with bradycardia. He was transferred per his request to [facility] to be seen by Dr. Francisco. Dr. Francisco felt that he was in atrial flutter with bradycardia, placed him on Eliquis, stopped all of his medications and we started him on hydralazine and amlodipine. The patient's blood pressure has been continued to be labile and he was transferred to [facility] for physical therapy and occupational therapy, on Eliquis, amlodipine, and hydralazine. In [address] weeks, [address]. Francisco would like to see him again to see if he can do a cardioversion. The patient is here for PT and OT. The patient was evaluated at [facility] and was able to walk 100 feet yesterday. He was admitted back to [facility] late last night. SOCIAL HISTORY: Reveals the patient lives alone. He has a daughter somewhat estranged at times. He does have a history of severe alcohol abuse. No history of smoking. He is a DNR and he does make his own decisions. PAST MEDICAL HISTORY: Positive for; 1. Insulin-dependent diabetic. 2. End-stage renal disease, on hemodialysis. 3. Labile hypertension. 4. Atrial flutter with RVR. 5. Allergies. PAST SURGICAL HISTORY: The patient has had 5 knee surgeries or arthroscopies and arthrotomies of both knees with no hardware replacement. He has a dialysis shunt. He had I and D of the right posterior ankle and has had amputation with anterior great toe forefoot amputation secondary to peripheral vascular disease and cellulitis with osteomyelitis. ALLERGIES: THE PATIENT IS SENSITIVE TO DOXYCYCLINE, WHICH GIVES HIM NAUSEA. REVIEW OF SYSTEMS: The patient denies any fever or chills recently. He states he feels very tired. He denies any change in his hearing, nose or throat symptoms beside drainage. He states he has not had any tachycardia and he has no chest pain. He is significantly short of breath on exertion. He is having no respiratory problems at this time, although he was previously on oxygen. He had no rales, rhonchi, or wheezes heard. He has a history of atrial flutter with some CHF. He denies any GI problems including nausea, vomiting, diarrhea, or constipation. Denies any significant pain, but he has peripheral neuropathy. He also has some significant peripheral vascular disease. PHYSICAL EXAMINATION: GENERAL: This is a well-developed, well-nourished, pleasant white male, in no apparent distress at this time. HEENT: Reveals normocephalic and nontraumatic cranium. Pupils are equal, round, reactive. Extraocular movements intact. Nose and throat are slightly dry. NECK: Supple without masses, nodes, or bruits. No jugular venous distention is noted. LUNGS: Reveal bibasilar rales, but no wheezes and no rhonchi. No cough is noted. HEART: Reveals irregular rate with a pulse presently 56. No gallops or murmurs are noted. ABDOMEN: Soft and nontender without organomegaly. Normal bowel sounds are noted in all 4 quadrants. : Deferred. EXTREMITIES: Reveal no clubbing, cyanosis, or edema. The patient has peripheral neuropathy in bilateral feet. LABORATORY DATA: Today on admission reveals white count 5000, hemoglobin 9.0, hematocrit 27.4 with a platelet count of 134,000. Sodium is 134, potassium 4.8, chloride 97, carbon dioxide 26 with a creatinine of 7.29, and GFR was 8. Blood sugar this morning was 98. [id number] sugar last night was 114. ASSESSMENT: 1. Generalized weakness. 2. End-stage renal disease. 3. Bradycardia. 4. Coronary artery disease with cardiomegaly. 5. Diabetes under improved control. 6. Diabetic retinopathy. 7. Diabetic nephropathy. 8. Diabetic neuropathy. 9. History of atrial fibrillation with left atrial thrombus in the past, but no cerebrovascular accident. 10. Severe peripheral vascular disease with amputation just right foot. 11. Generalized weakness. PLAN: The patient is presently on Eliquis. The patient is presently started on amlodipine and hydralazine. The patient is off Procardia and Coreg. The patient will continue on Levemir 10 units subcu every day and sliding scale. The patient will follow up with Dr. Francisco in approximately 3 weeks. At that time, he will most likely have cardioversion. The patient will continue physical therapy and occupational therapy here at [facility]. Job ID: [id number]
[2018-07-28] MEDS ORDERED: Calcium Carbonate 500 MG ChewTAB PO SCH (23:15)
[2018-07-29] MEDS: Calcium Carbonate 500 MG ChewTAB PO SCH ×3 (08:26→20:48)
[2018-07-29] MEDS: Amlodipine 10 MG TAB PO SCH (08:26)
[2018-07-29] MEDS: Apixaban 5 MG TAB PO SCH ×2 (08:26→20:48)
[2018-07-29] MEDS: Folic Acid/Vit B Comp W-C PO SCH (08:27)
[2018-07-29] MEDS: Saccharomyces boulardii 250 MG CAP PO SCH (08:28)
[2018-07-29] MEDS: Gabapentin 100 MG CAP PO SCH (08:28)
[2018-07-29] MEDS: Lantus 1000 UNITS/10 ML VIAL SC SCH (08:28)
[2018-07-29] MEDS: Lisinopril 10 MG TAB PO SCH (08:28)
[2018-07-29] MEDS: Pioglitazone HCl 15 MG TAB PO SCH (08:28)
[2018-07-29] MEDS: TUMERIC PO SCH ×2 (08:29→14:52)
--- NOTE | 2018-07-29 11:23 | PRG ---
DATE OF SERVICE: 07/29/2018 SUBJECTIVE: Mr. Chahal is a very pleasant 57-year-old white male, who had significant problems with getting to his hemodialysis. He missed a couple of sessions and ended up significantly uremic and was transferred to [facility] ICU and placed on BiPAP and emergently diuresed. He recovered and was transferred to [facility] for PT and OT. He became very bradycardic while he was at [facility] for rehab and preferred to go see Dr. Francisco in [facility] where he was found to be in atrial flutter with bradycardia. He was started on Eliquis and switched over to amlodipine and hydralazine. He then was stabilized and transferred back to [facility]. He is to be seen by Dr. Francisco in about three weeks for cardioversion. The patient is here basically for PT and OT. He walked the loop yesterday, but had a couple of stops. He gradually is getting somewhat stronger. The patient states he had a good breakfast this morning and did pretty well in therapy yesterday. PHYSICAL EXAMINATION: VITAL SIGNS: Today reveal blood pressure 161/72, pulse 44 to 48, O2 saturation 96% on room air. GENERAL: This is a well-developed, well-nourished, slightly obese white male in no apparent distress at this time. HEENT: Reveals normocephalic, nontraumatic cranium. Pupils are equally round and reactive. Extraocular movements are intact. Nose and throat are slightly dry. NECK: Supple without masses, nodes, or bruits. CHEST: Clear to auscultation. No rales, no rhonchi. No wheezes are heard. The pulse is irregular again this morning at 50. No murmurs, gallops, or rubs are noted. ABDOMEN: Slightly obese, soft, nontender without organomegaly. Normal bowel sounds noted in all four quadrants. : Deferred. EXTREMITIES: Revealed no clubbing, cyanosis, or edema. The patient has peripheral neuropathy in both feet. He has generalized weakness, but he is walking at this time. LABORATORY DATA: Today revealed his POC was 96 prior to supper last night and 121 prior to bedtime. His fasting blood sugar this morning was 82. ASSESSMENT: 1. Generalized weakness. 2. End-stage renal disease. 3. Bradycardia. 4. Atrial flutter. 5. Coronary artery disease with cardiomyopathy. 6. Diabetes with retinopathy, nephropathy, and neuropathy. 7. History of atrial fibrillation in the past with left atrial thrombus in the past, but no cerebrovascular accident. 8. Severe peripheral vascular disease with amputation of right foot. 9. Generalized weakness. PLAN: 1. Continue present medications. 2. Continue to monitor the patient's diabetes with Accu-Cheks a.c. and at bedtime. 3. Continue to monitor the patient's blood pressure and heart rate. 4. Follow with Dr. Francisco in about 3 weeks. 5. Continue physical therapy and occupational therapy. Job ID: [id number]
[2018-07-29] MEDS: Escitalopram Oxalate 10 mg Tablet PO SCH (20:48)
[2018-07-29] MEDS: traMADol HCl 50 MG TAB PO PRN (20:48)
[2018-07-30] MEDS: TUMERIC PO SCH ×5 (00:31→20:27)
[2018-07-30] MEDS: Amlodipine 10 MG TAB PO SCH ×2 (09:49→13:50)
[2018-07-30] MEDS: Lisinopril 10 MG TAB PO SCH ×2 (09:49→13:48)
[2018-07-30] MEDS: Pioglitazone HCl 15 MG TAB PO SCH ×2 (09:49→13:49)
[2018-07-30] MEDS: Lantus 1000 UNITS/10 ML VIAL SC SCH ×2 (09:49→13:52)
[2018-07-30] MEDS: Calcium Carbonate 500 MG ChewTAB PO SCH ×3 (09:49→20:28)
[2018-07-30] MEDS: Apixaban 5 MG TAB PO SCH ×3 (09:49→20:26)
[2018-07-30] MEDS: Folic Acid/Vit B Comp W-C PO SCH ×2 (09:49→13:50)
[2018-07-30] MEDS: Gabapentin 100 MG CAP PO SCH ×2 (09:49→13:51)
[2018-07-30] MEDS: Saccharomyces boulardii 250 MG CAP PO SCH ×2 (09:50→13:48)
[2018-07-30] MEDS: traMADol HCl 50 MG TAB PO PRN (20:26)
[2018-07-30] MEDS: Escitalopram Oxalate 10 mg Tablet PO SCH (20:27)
--- NOTE | 2018-07-30 20:49 | PRG ---
DATE OF SERVICE: 07/30/2018 SUBJECTIVE: This is a well-developed and well-nourished 57-year-old white male, recently transferred back from [facility], where he was evaluated by Dr. Francisco and found to be in atrial flutter with bradycardia. Many of his medications were changed and he was transferred back here for Physical Therapy and Occupational Therapy. The patient states he is doing much better and getting a little stronger. He states he walked, his maximum yesterday was almost 3 loops around the nurse's station with multiple stops, but that made him very tired. The patient also had dialysis this morning, so he feels somewhat tired at this time. Otherwise, the patient states he is definitely getting stronger. OBJECTIVE: VITAL SIGNS: Today reveal blood pressure fluctuates systolic 161 to 188, diastolic 72 to 92 with O2 saturation 93% on room air, pulse 57, and T-max 98.4. GENERAL: This is a well-developed, well-nourished, slightly obese white male, in no apparent distress at this time. HEENT: Reveals normocephalic, nontraumatic cranium. Pupils are equally round and reactive to light. Extraocular movements are intact. Nose and throat are slightly dry. NECK: Supple without masses, nodes, or bruits. CHEST: Clear to auscultation. HEART: Reveals irregularly irregular rate and rhythm. ABDOMEN: Soft, slightly obese, nontender without organomegaly. Normal bowel sounds. No rebound or guarding is noted. GENITOURINARY: Deferred. EXTREMITIES: Reveal no clubbing, cyanosis, or edema. ASSESSMENT: 1. Generalized weakness. 2. End-stage renal disease. 3. Bradycardia. 4. Atrial flutter. 5. Coronary artery disease with cardiomyopathy. 6. Diabetes with retinopathy, nephropathy and neuropathy. 7. History of atrial fibrillation in the past with left atrial thrombus, but no cerebrovascular accident. 8. Peripheral vascular disease with amputation of the right foot. PLAN: 1. Continue present medications. 2. Continue dialysis on Friday, , Friday. 3. Continue to monitor the patient with Accu-Cheks a.c. and at bedtime and adjust medications as needed. 4. Continue to monitor the patient's blood pressure and heart rate. 5. Follow up with Dr. Francisco in about 2-1/2 weeks. 6. Continue physical therapy and occupational therapy. Job ID: [id number]
[2018-07-30] MEDS ORDERED: Fleet Enema 133 ML BOT ONE ×2 (23:17→23:26)
[2018-07-30] MEDS ORDERED: Fleet Enema 133 ML BOT FS SCH (23:30)
[2018-07-31] MEDS: Folic Acid/Vit B Comp W-C PO SCH (09:19)
[2018-07-31] MEDS: Amlodipine 10 MG TAB PO SCH (09:19)
[2018-07-31] MEDS: Saccharomyces boulardii 250 MG CAP PO SCH (09:19)
[2018-07-31] MEDS: Lisinopril 10 MG TAB PO SCH (09:21)
[2018-07-31] MEDS: Gabapentin 100 MG CAP PO SCH (09:22)
[2018-07-31] MEDS: Pioglitazone HCl 15 MG TAB PO SCH (09:22)
[2018-07-31] MEDS: Apixaban 5 MG TAB PO SCH ×2 (09:23→20:56)
[2018-07-31] MEDS: Lantus 1000 UNITS/10 ML VIAL SC SCH (09:24)
[2018-07-31] MEDS: Calcium Carbonate 500 MG ChewTAB PO SCH ×3 (09:24→20:56)
[2018-07-31] MEDS: TUMERIC PO SCH ×3 (09:27→20:56)
--- NOTE | 2018-07-31 14:33 | PRG ---
DATE OF SERVICE: 07/31/2018 SUBJECTIVE: Mr. Chahal is a very pleasant 57-year-old white male transferred back from [facility], where he was evaluated by Dr. Francisco. He had atrial flutter with bradycardia. His medications were adjusted, and he was transferred back here for continued PT and OT. He states he is slowly getting better and his balance is getting better. He walked 3-1/2 rounds yesterday, but had to stop multiple times. He states he has began to eat better. OBJECTIVE: VITAL SIGNS: Reveal blood pressure today is 170/85, pulse 47 to 54, respirations 20, O2 saturation on room air is 98%, and T-max is 98.2. GENERAL: This is a well-developed, well-nourished, very pleasant white male, in no apparent distress. He is complaining about getting rice at every meal, but he cannot have potatoes because of his renal status. HEENT: Reveals normocephalic, nontraumatic cranium. Pupils are equal, round, and reactive. Extraocular movements are intact. Nose and throat are slightly dry, but much improved. NECK: Supple without masses, nodes, or bruits. CHEST: Clear to auscultation. No rales, rhonchi, wheezes, or cough is noted. HEART: Reveals irregularly irregular rate and rhythm, but no murmurs, gallops, or rubs are noted. ABDOMEN: Slightly obese, soft, nontender without organomegaly. Normal bowel sounds are heard in all 4 quadrants. No rebound or guarding is noted. : Deferred. EXTREMITIES: Reveal no clubbing, cyanosis, or edema. LABORATORY DATA: Laboratory was drawn yesterday at dialysis, nurse will find it for me. ASSESSMENT: 1. End-stage renal disease, on hemodialysis Friday, , Friday. 2. Bradycardia, slowly better. Medication has been changed by Dr. Francisco. 3. Atrial flutter. 4. Generalized weakness. 5. Coronary artery disease with cardiomyopathy. 6. Diabetes with diabetic retinopathy, diabetic nephropathy, and diabetic neuropathy. 7. History of atrial fibrillation in the past with left atrial thrombus, but no cerebrovascular accident was noted. 8. Peripheral vascular disease with amputation of the right foot. 9. Hypotension. PLAN: 1. Continue present medication. 2. Continue dialysis on Friday, , and Friday. 3. Continue to monitor the patient with Accu-Cheks a.c. and h.s. 4. Continue to monitor the patient's blood pressure and heart rate. 5. Follow up with Dr. Francisco in about 2 weeks. 6. Continue PT and OT. 7. Dr. Henry Brand is on-call this weekend and will cover the patient from now until Friday night 9 p.m. Job ID: [id number]
[2018-07-31] MEDS: Escitalopram Oxalate 10 mg Tablet PO SCH (20:56)
[2018-08-01] MEDS: hydrALAZINE 25 MG TAB PO PRN (12:39)
[2018-08-01] MEDS: Gabapentin 100 MG CAP PO SCH (12:39)
[2018-08-01] MEDS: Calcium Carbonate 500 MG ChewTAB PO SCH ×3 (12:39→21:11)
[2018-08-01] MEDS: Saccharomyces boulardii 250 MG CAP PO SCH (12:41)
[2018-08-01] MEDS: Lisinopril 10 MG TAB PO SCH (12:41)
[2018-08-01] MEDS: Apixaban 5 MG TAB PO SCH ×2 (12:42→21:10)
[2018-08-01] MEDS: Folic Acid/Vit B Comp W-C PO SCH (12:43)
[2018-08-01] MEDS: Amlodipine 10 MG TAB PO SCH (12:43)
[2018-08-01] MEDS: Pioglitazone HCl 15 MG TAB PO SCH (12:44)
[2018-08-01] MEDS: Lantus 1000 UNITS/10 ML VIAL SC SCH (12:44)
[2018-08-01] MEDS: TUMERIC PO SCH ×3 (12:45→21:11)
[2018-08-01] MEDS: traMADol HCl 50 MG TAB PO PRN (21:09)
[2018-08-01] MEDS: Escitalopram Oxalate 10 mg Tablet PO SCH (21:10)
--- NOTE | 2018-08-02 07:24 | PRG ---
DATE OF SERVICE: 08/02/[address] Richardson Stoddard. SUBJECTIVE: The patient is a 57-year-old white male with history of end-stage renal disease, on hemodialysis, as well as severe hypertension, peripheral vascular disease, paroxysmal atrial flutter, and diabetes with complication of retinopathy, nephropathy, and neuropathy, who is in the [facility] to maintain his strength after developing exacerbation of renal failure secondary to noncompliance to dialysis. He has also had complications of recurrent atrial flutter requiring change in his medications by his solar project engineer, Dr. Francisco, now he is feeling much better. He still has labile hypertension, but denies any headaches or dizziness. He has greatly increased strength. He is walking 3 rounds around the nurses station with multiple rest. He is having much less nausea as he has again acclimated to the dialysis again. OBJECTIVE: VITAL SIGNS: Show his blood pressure is 164/79, although it did increase to 210 after dialysis and after his blood pressure medicines were held prior to dialysis because of recurrent hypotension post dialysis. His temperature is 99.4, pulse 56, respirations 18, and O2 sat is 96% on room air. LUNGS: Clear. CARDIAC: Showed regular rhythm. ABDOMEN: Soft and nontender. LABORATORY DATA: Accu-Cheks are stable at 76 to 150. ASSESSMENT: 1. Stable end-stage renal disease, on hemodialysis. 2. Type 2 diabetes with adequate control. 3. Paroxysmal atrial flutter/atrial fibrillation, controlled on medications. 4. Labile hypertension, but appears to be stable on regimen. PLAN: Continue PT/OT. Continue hemodialysis. Continue to monitor Accu-Cheks, titrate and control. Continue to monitor nutritional support. His nausea is improved, and he is eating much better. Job ID: [id number]
--- NOTE | 2018-08-02 09:02 | PRG ---
DATE OF SERVICE: 08/02/2018 SUBJECTIVE: The patient feels much better. Slept well through the night. No nausea or vomiting. No shortness of breath. No headaches or dizziness. OBJECTIVE: VITAL SIGNS: Shows blood pressure down to 164/77, temperature 97, pulse 55, respirations 18, and O2 sat is 96% on room air. LUNGS: Clear. CARDIAC: Shows regular rhythm. ABDOMEN: Soft and nontender. ASSESSMENT: 1. Stable end-stage renal disease, on hemodialysis. 2. Improving deconditioning. 3. Atrial flutter with bradycardia, resolved. No medication change. 4. Paroxysmal atrial fibrillation, resolved. 5. Coronary artery disease and cardiomyopathy, stable. 6. Labile hypertension, controlled to goal. PLAN: 1. Continue PT/OT. 2. Continue hemodialysis 3 times weekly. 3. Continue Accu-Cheks to monitor and titrate and control diabetes. 4. Continue to monitor labile hypertension. Job ID: [id number]
[2018-08-02] MEDS: Folic Acid/Vit B Comp W-C PO SCH (09:35)
[2018-08-02] MEDS: Calcium Carbonate 500 MG ChewTAB PO SCH ×4 (09:36→20:25)
[2018-08-02] MEDS: Gabapentin 100 MG CAP PO SCH (09:36)
[2018-08-02] MEDS: Amlodipine 10 MG TAB PO SCH ×2 (09:36→09:37)
[2018-08-02] MEDS: Saccharomyces boulardii 250 MG CAP PO SCH (09:36)
[2018-08-02] MEDS: Apixaban 5 MG TAB PO SCH ×2 (09:37→20:18)
[2018-08-02] MEDS: Lisinopril 10 MG TAB PO SCH (09:37)
[2018-08-02] MEDS: Pioglitazone HCl 15 MG TAB PO SCH (09:37)
[2018-08-02] MEDS: TUMERIC PO SCH ×3 (09:39→20:26)
[2018-08-02] MEDS: Lantus 1000 UNITS/10 ML VIAL SC SCH (09:42)
[2018-08-02] MEDS: traMADol HCl 50 MG TAB PO PRN (20:17)
[2018-08-02] MEDS: Escitalopram Oxalate 10 mg Tablet PO SCH (20:18)
[2018-08-03] MEDS: Apixaban 5 MG TAB PO SCH ×2 (08:59→20:13)
[2018-08-03] MEDS: Gabapentin 100 MG CAP PO SCH (09:00)
[2018-08-03] MEDS: Folic Acid/Vit B Comp W-C PO SCH (09:00)
[2018-08-03] MEDS: Lisinopril 10 MG TAB PO SCH (09:00)
[2018-08-03] MEDS: Calcium Carbonate 500 MG ChewTAB PO SCH ×3 (09:00→20:14)
[2018-08-03] MEDS: Lantus 1000 UNITS/10 ML VIAL SC SCH (09:00)
[2018-08-03] MEDS: Saccharomyces boulardii 250 MG CAP PO SCH (09:01)
[2018-08-03] MEDS: Pioglitazone HCl 15 MG TAB PO SCH (09:01)
[2018-08-03] MEDS: TUMERIC PO SCH ×3 (09:01→20:13)
[2018-08-03] MEDS: Amlodipine 10 MG TAB PO SCH (09:02)
--- NOTE | 2018-08-03 20:09 | PRG ---
DATE OF SERVICE: 08/03/2018 SUBJECTIVE: Mr. Chahal is a very pleasant 57-year-old white male, who returned from [facility] after evaluation by Dr. Francisco. He had atrial flutter with bradycardia. Medicines were adjusted. He was transferred back here for continued physical therapy and occupational therapy. He states he continues to get better. He is walking better. His stamina is better and he looks much better. OBJECTIVE: VITAL SIGNS: Vital signs today reveal blood pressure ranges between 107 systolic and 181 systolic, and diastolic between 67 and 81. His pulse ranges between 46 and 64. Respirations are 18. His O2 saturation is 93% on room air. T-max is 97.2. [id number] sugars reveal this morning at a fasting of 88, before lunch 144, before supper 77. Last night before bedtime was 117. His blood sugars are much improved, ranging between 77 and 177. PHYSICAL EXAMINATION: GENERAL: This is a well-developed, well-nourished, very pleasant, slightly obese white male, in no apparent distress at this time. HEENT: Reveals normocephalic and nontraumatic cranium. Pupils are equal, round, and reactive. Extraocular movement is intact. Nose and throat are slightly dry. NECK: Supple without masses, nodes or bruits. CHEST: Clear to auscultation. No rales, rhonchi, wheezes or cough is noted. HEART: Reveals a regular rate and rhythm. ABDOMEN: Soft, nontender without organomegaly. Normal bowel sounds are noted. No rebound or guarding is noted. : Deferred. EXTREMITIES: Reveal no clubbing, cyanosis, or edema. He has generally slowly increasing strength and stamina. ASSESSMENT: 1. End-stage renal disease, on hemodialysis. 2. Atrial flutter with bradycardia. 3. Paroxysmal atrial fibrillation. 4. Coronary artery disease with cardiomyopathy. 5. Labile hypertension, controlled pretty much to goal. 6. Generalized weakness with an improving deconditioning. 7. Diabetes with diabetic retinopathy, diabetic nephropathy, and diabetic neuropathy. 8. Peripheral vascular disease with amputation of the right foot. PLAN: 1. Continue dialysis on Friday, , and Friday. 2. Continue monitor the patient's diabetes with Accu-Cheks before meal and at bedtime. 3. Continue to monitor the patient's blood pressure closely and adjust medications as needed. 4. Continue physical therapy and occupational therapy. 5. Encourage diet. Job ID: [id number]
[2018-08-03] MEDS: Escitalopram Oxalate 10 mg Tablet PO SCH (20:13)
[2018-08-03] MEDS: traMADol HCl 50 MG TAB PO PRN (20:13)
[2018-08-04] MEDS: Apixaban 5 MG TAB PO SCH ×3 (09:08→20:06)
[2018-08-04] MEDS: Amlodipine 10 MG TAB PO SCH ×3 (09:08→12:08)
[2018-08-04] MEDS: Calcium Carbonate 500 MG ChewTAB PO SCH ×3 (09:09→20:07)
[2018-08-04] MEDS: Folic Acid/Vit B Comp W-C PO SCH ×2 (09:09→12:10)
[2018-08-04] MEDS: Gabapentin 100 MG CAP PO SCH ×2 (09:09→12:10)
[2018-08-04] MEDS: Lantus 1000 UNITS/10 ML VIAL SC SCH (09:09)
[2018-08-04] MEDS: TUMERIC PO SCH ×3 (09:10→20:07)
[2018-08-04] MEDS: Pioglitazone HCl 15 MG TAB PO SCH ×2 (09:10→12:09)
[2018-08-04] MEDS: Saccharomyces boulardii 250 MG CAP PO SCH ×2 (09:10→12:09)
[2018-08-04] MEDS: Lisinopril 10 MG TAB PO SCH ×2 (09:10→12:09)
[2018-08-04] MEDS: hydrALAZINE 25 MG TAB PO PRN (12:11)
[2018-08-04] MEDS: traMADol HCl 50 MG TAB PO PRN (20:06)
[2018-08-04] MEDS: Escitalopram Oxalate 10 mg Tablet PO SCH (20:06)
--- NOTE | 2018-08-04 21:40 | PRG ---
DATE OF SERVICE: 08/04/2018 SUBJECTIVE: This is a 57-year-old white male who was seen by Dr. Francisco at [facility] after he had atrial flutter with bradycardia. Medications were adjusted and transferred back here for PT and OT. He actually is doing much better, walking better, and his stamina is somewhat better. PHYSICAL EXAMINATION: VITAL SIGNS: Today, reveal blood pressure with systolic ranges between 143 and 182 and diastolic ranges between 70 and 82; respirations 16 to 18, pulse ranges from 50 to 56, O2 saturation is 93% to 95% on room air, T-max is 99.1. Point of care sugars today reveal fasting this morning was 86, before lunch 96, before supper 168, before bedtime 153. GENERAL: This is a well-developed, well-nourished, slightly obese white male, in no apparent distress at this time. HEENT: Reveals normocephalic and nontraumatic cranium. Pupils are equally round and reactive. Extraocular movements intact. Nose and throat are moist today. NECK: Supple without masses, nodes, or bruits. No jugular venous distention noted. CHEST: Clear to auscultation. No rales. No rhonchi. No wheezes are noted. HEART: Reveals a regular rate and rhythm without murmurs, gallops, or rubs. ABDOMEN: Soft and nontender without organomegaly. Normal bowel sounds are noted. No rebound or guarding is noted. : Deferred. EXTREMITIES: Reveal no clubbing, cyanosis, or edema. He continues to slowly improve his strength. ASSESSMENT: 1. End-stage renal disease, on hemodialysis Friday, , Friday by Dr. Bowman and by Dr. Monsivais. 2. Atrial flutter with bradycardia, sounds like rate controlled or normal sinus at this time. 3. Paroxysmal atrial fibrillation. 4. Coronary artery disease with cardiomyopathy. 5. Labile hypertension, which is much improved. 6. Generalized weakness with improved deconditioning. 7. Diabetes with diabetic retinopathy, diabetic nephropathy, and diabetic neuropathy. 8. Peripheral vascular disease with amputation of the right foot. PLAN: 1. Continue dialysis Friday, , and Friday. 2. Continue to monitor the patient's diabetes with Accu-Chek before meals and at night and adjust as needed. 3. Continue to monitor his blood pressure closely. 4. Continue to monitor the patient's rate and watch for RVR and bradycardia. 5. Continue PT and OT. 6. Encourage diabetic diet. 7. Plan of discharge most likely on Friday. Job ID: [id number]
[2018-08-05] MEDS: Saccharomyces boulardii 250 MG CAP PO SCH (08:21)
[2018-08-05] MEDS: Calcium Carbonate 500 MG ChewTAB PO SCH ×3 (08:21→20:13)
[2018-08-05] MEDS: Amlodipine 10 MG TAB PO SCH (08:22)
[2018-08-05] MEDS: Lisinopril 10 MG TAB PO SCH (08:23)
[2018-08-05] MEDS: Gabapentin 100 MG CAP PO SCH (08:23)
[2018-08-05] MEDS: Apixaban 5 MG TAB PO SCH ×2 (08:23→20:12)
[2018-08-05] MEDS: Pioglitazone HCl 15 MG TAB PO SCH (08:23)
[2018-08-05] MEDS: Folic Acid/Vit B Comp W-C PO SCH (08:23)
[2018-08-05] MEDS: TUMERIC PO SCH ×3 (08:24→20:13)
[2018-08-05] MEDS: Lantus 1000 UNITS/10 ML VIAL SC SCH (08:24)
[2018-08-05 09:17] VITALS: BMI 27.3
--- NOTE | 2018-08-05 18:09 | PRG ---
DATE OF SERVICE: 08/05/2018 SUBJECTIVE: Mr. Chahal is a 57-year-old white male who returned from [facility] after being evaluated by Dr. Francisco. Medicines were adjusted, transferred back to [facility] for physical therapy and occupational therapy. He has recently been doing much better and walked 100 feet a couple of times this morning and 400 feet plus this afternoon. Stamina continues to gradually get better. He feels better but he still has low pulse. OBJECTIVE: VITAL SIGNS: Today reveal blood pressure ranges from a systolic of 147 up to 185 and diastolic from 66 to 91, pulse ranges from 44 to 54, respirations 20, O2 saturation is 96% on room air, and T-max is 99.3. GENERAL: He is well-developed, well-nourished, very pleasant, slightly obese white male, in no apparent distress at this time. HEENT: Reveals normocephalic and nontraumatic cranium. Pupils are equal, round, reactive. Extraocular is intact. Nose and throat are dry but clear. NECK: Supple without masses, nodes, or bruits. CHEST: Clear to auscultation. No rales or rhonchi, and no wheezes are heard. No cough is noted. HEART: Reveals an irregularly irregular rate and rhythm without murmurs, gallops, or rubs. ABDOMEN: Soft and nontender without organomegaly. Normal bowel sounds are noted. No rebound or guarding is noted. : Deferred. EXTREMITIES: Reveal no clubbing, cyanosis, or edema. The patient continues to improve daily with strength and stamina. ASSESSMENT: 1. End-stage renal disease, on hemodialysis Friday, , Friday by Dr. Bowman and by Dr. Monsivais. 2. Atrial flutter with bradycardia with rates that are pretty much normal at this time, still slightly alva. 3. Paroxysmal atrial fibrillation. 4. Coronary artery disease with cardiomyopathy. 5. Labile hypertension, which is much improved. 6. Generalized weakness, improved, deconditioning. 7. Diabetes with diabetic retinopathy, diabetic nephropathy, diabetic neuropathy. 8. Peripheral vascular disease with amputation of the forefoot of the right foot. PLAN: 1. Continue dialysis Friday, , Friday. 2. Continue to monitor the patient's diabetes with Accu-Cheks a.c. and h.s. 3. Continue to monitor the patient's blood pressure daily. 4. Continue to monitor the patient's rate and watch for RVR and bradycardia. 5. Continue physical therapy and occupational therapy. 6. Encourage diabetic diet. 7. Discharge planning for Friday. Job ID: [id number]
[2018-08-05] MEDS: Escitalopram Oxalate 10 mg Tablet PO SCH (20:13)
[2018-08-06] MEDS: Pioglitazone HCl 15 MG TAB PO SCH (11:30)
[2018-08-06] MEDS: Lisinopril 10 MG TAB PO SCH (11:30)
[2018-08-06] MEDS: Amlodipine 10 MG TAB PO SCH (11:30)
[2018-08-06] MEDS: Gabapentin 100 MG CAP PO SCH (11:30)
[2018-08-06] MEDS: Folic Acid/Vit B Comp W-C PO SCH (11:30)
[2018-08-06] MEDS: Apixaban 5 MG TAB PO SCH ×2 (11:30→20:33)
[2018-08-06] MEDS: Saccharomyces boulardii 250 MG CAP PO SCH (11:30)
[2018-08-06] MEDS: Lantus 1000 UNITS/10 ML VIAL SC SCH (11:31)
[2018-08-06] MEDS: Calcium Carbonate 500 MG ChewTAB PO SCH ×3 (11:31→20:33)
[2018-08-06] MEDS: TUMERIC PO SCH ×3 (11:31→20:33)
[2018-08-06] MEDS: Escitalopram Oxalate 10 mg Tablet PO SCH (20:33)
[2018-08-07] MEDS: Lantus 1000 UNITS/10 ML VIAL SC SCH (08:27)
[2018-08-07] MEDS: Folic Acid/Vit B Comp W-C PO SCH (08:33)
[2018-08-07] MEDS: Saccharomyces boulardii 250 MG CAP PO SCH (08:33)
[2018-08-07] MEDS: Pioglitazone HCl 15 MG TAB PO SCH (08:34)
[2018-08-07] MEDS: Apixaban 5 MG TAB PO SCH (08:35)
[2018-08-07] MEDS: Lisinopril 10 MG TAB PO SCH (08:35)
[2018-08-07] MEDS: Amlodipine 10 MG TAB PO SCH (08:36)
[2018-08-07] MEDS: Calcium Carbonate 500 MG ChewTAB PO SCH ×2 (09:03→15:26)
[2018-08-07] MEDS: TUMERIC PO SCH ×2 (09:04→15:26)
[2018-08-07] MEDS: Gabapentin 100 MG CAP PO SCH (09:06)
--- NOTE | 2018-08-07 14:13 | PRG ---
DATE OF SERVICE: 08/06/2018 SUBJECTIVE: Mr. Aranda is a 57-year-old white male, who returned from [facility] after being evaluated by Dr. Francisco. He was stopped off his beta-magui and calcium-channel magui and placed on amlodipine along with lisinopril because the other two decrease his heart rate. He was extremely weak and barely able to stand when he first came back, but now he is walking about 400 feet plus. His stamina has gotten much better, and he has actually not quite reached maximum medical benefit, but he insisted on being discharged home. OBJECTIVE: VITAL SIGNS: blood pressure yesterday was 144/77, pulse 48 to 51, respirations 18, O2 saturation 93% to 96% on room air, and T-max 99.5. GENERAL: This is a well-developed, well-nourished, very pleasant 57-year-old white male, in no apparent distress at this time. HEENT: Reveals normocephalic and nontraumatic cranium. Pupils are equally round and reactive. Extraocular movements are intact. Nose and throat are slightly dry. NECK: Supple without masses, nodes, or bruits. CHEST: Clear to auscultation. No rales, rhonchi, or wheezes are heard. HEART: Reveals an irregularly irregular rate and rhythm and atrial flutter, slow. ABDOMEN: Soft, nontender, and slightly obese without organomegaly. Normal bowel sounds are noted. No rebound or guarding is noted. : Deferred. EXTREMITIES: Reveal no clubbing, cyanosis, or edema. The patient has some muscle wasting in his lower extremities and upper extremities, most likely secondary to his renal disease and dialysis, but the patient's strength continues to improve daily along with the stamina. ASSESSMENT: 1. End-stage renal disease, on hemodialysis Friday, , and Friday by Dr. Monsivais and Dr. Bowman. 2. Atrial flutter with bradycardia with rates pretty much back to his normal between 40 and 60. 3. Paroxysmal atrial fibrillation. 4. Coronary artery disease with cardiomegaly. 5. Labile hypertension, which is improving. 6. Generalized weakness, which has improved. 7. Diabetes with diabetic retinopathy, diabetic neuropathy, and diabetic nephropathy. 8. Peripheral vascular disease with amputation of the forefoot of the right foot. PLAN: 1. The patient most likely will be discharged tomorrow at his insistence. 2. Continue dialysis Friday, , and Friday under the care of Dr. Bowman and Dr. Monsivais. 3. Continue to monitor the patient's diabetes with Accu-Cheks a.c. and at bedtime. 4. The patient will continue on Lantus subcu and he has been instructed by the nurses how to do that. 5. Continue to monitor the patient's rate and watch for RVR and bradycardia. 6. Continue physical therapy and occupational therapy. 7. Continue to encourage diabetic diet. 8. Discharge planning for Friday. Job ID: [id number]
[2018-08-07 16:09] VITALS: BP 157/76; TEMP 98.6
--- NOTE | 2018-08-08 10:35 | DIS ---
DATE OF ADMISSION: 07/27/2018 DATE OF DISCHARGE: 08/07/2018 HOSPITAL COURSE: This is a well-developed, well-nourished 57-year-old white male, who initially was admitted to [facility] uremic, had to have emergent dialysis, was in ICU on BiPAP. Eventually, he was stabilized and transferred to [facility] for physical therapy and occupational therapy. While the patient was in the hospital, he became very bradycardic with pulses down in the mid to low 30s. The patient requested to see Dr. Francisco at [facility], so he was transferred to the emergency room there, where he was evaluated and found to be significantly bradycardic with atrial flutter. His previous medications were stopped, which included diltiazem along with carvedilol. He was switched over to amlodipine and lisinopril. His pulse gradually came up, and Dr. Francisco wanted to see him 3 weeks after discharge to possibly do an ablation. The patient is about one and half weeks out since then, and he is actually much better. His pulse runs about 48 to 60. Blood pressure is still well controlled. The patient has actually done very well in physical therapy. When initially he came here, he was unable to stand, and now he is walking 300 to 400 feet with some multiple rest. The patient can continue to do better, but requests to go home since it is [place], and he basically insists on going home. He knows that the hospital will be closed for as far as physical therapy for Friday and Friday and then Friday and Friday. He would rather be home, where he can get his daughter to walk him and get therapy. PHYSICAL EXAMINATION: VITAL SIGNS: Today reveal blood pressure of 161/76, pulse 51, respirations 16, O2 saturation 94% to 96% on room air, T-max is 98.2. GENERAL: This is a well-developed, well-nourished, slightly obese, white male, in no apparent distress at this time. He states he is ready to go home. He is doing much better, and he feels like he has reached maximum medical benefit. HEENT: Reveals normocephalic, nontraumatic cranium. Pupils are equal, round, reactive. Extraocular movements intact. Nose and throat are clear, but dry. NECK: Supple without masses, nodes, or bruits. CHEST: Clear to auscultation. No rales, rhonchi, or wheezes are heard. No cough is noted today. HEART: Reveals a very slow bradycardic rhythm, but irregularly irregular without murmurs, gallops, or rubs. ABDOMEN: Slightly obese, soft, nontender without organomegaly. Normal bowel sounds are noted in all 4 quadrants. No rebound or guarding is noted. : Deferred. EXTREMITIES: Reveal no clubbing, cyanosis, or edema. The patient continues to improve a little bit every day as far as his strength and stamina. DISCHARGE MEDICATIONS: Will include the followin. Turmeric one pill two or three times a day. 2. Tylenol 650 mg p.r.n. q.6 hours p.r.n. pain. 3. Amlodipine 10 mg one pill every day, and prescription had been sent to [facility]. 4. Apixaban 5 mg twice a day. 5. Calcium carbonate, which is Tums 500 mg two pills three times a day. 6. Escitalopram (Lexapro) 10 mg every evening. 7. Folic acid with vitamin B and vitamin C, which is Nephro-Piper one tablet daily. 8. Gabapentin 100 mg every day for neuropathy, and the patient has had that prescription sent to [facility]. 9. Insulin, which was Lantus 10 units subcu per pen daily. 10. Lactulose 5 g per 15 mL, the patient takes 20 mL daily p.r.n. and has been sent to [facility]. 11. Lisinopril 10 mg one pill each day and has been sent to [facility]. 12. Pioglitazone 30 mg one pill every day and has been sent to [facility]. The patient will continue to follow his blood sugars. The patient will be followed by Dr. Bowman and Dr. Monsivais at [facility] on Tuesdays, , and Saturdays. The patient will continue with [facility] for physical therapy and occupational therapy. The patient will continue with long-term. The patient will continue to have diabetic teaching, and the nurses from [facility] will continue to follow the patient's sugar and relay those on to me. The patient is to follow up with me in approximately 1 to 2 weeks. ASSESSMENT: 1. End-stage renal disease, on hemodialysis Friday, , Friday, followed by Dr. Bowman and Dr. Monsivais. 2. Atrial flutter with bradycardia with rates that are pretty much normal at this time, but still alva. 3. Paroxysmal atrial fibrillation. 4. Coronary artery disease with cardiomyopathy. 5. Labile hypertension, which is much improved. 6. Generalized weakness with deconditioning, which is much improved. 7. Diabetes with diabetic retinopathy, diabetic nephropathy, and diabetic neuropathy. 8. Peripheral vascular disease with amputation of forefoot of the right foot. PLAN: 1. The patient will be discharged at this time. 2. The patient's prescription had been sent to [facility]. 3. Continue dialysis on Friday, , Friday under the eyes and auspices of Dr. Bowman and Dr. Monsivais. 4. Continue to monitor the patient's diabetes with Accu-Cheks a.c. and h.s. 5. Continue to monitor the patient's blood pressure daily. 6. Continue to monitor the patient's rate and watch for RVR and bradycardia. 7. See Dr. Francisco in the next 10 days for further evaluation for possible ablation. 8. Continue physical therapy and occupational therapy outpatient through [facility]. 9. Continue home health nurse for diabetic teaching and monitoring the patient's sugars along with instruction on how to give insulin. 10. Continue PT and OT. 11. Continue to encourage the patient's diabetic diet. 12. Discharge planning for today. Job ID: [id number]
== END 2018-08-07 15:00 | disposition home or self-care (01) | DRG 947 ==
LOC: NAV ACUTE 18:59
PROVIDERS: ADMIT Family Medicine; ATTEND Family Medicine
DX: R53.1 Weakness (principal); N18.6 End stage renal disease; I13.2 Hypertensive heart and chronic kidney disease with heart failure and with stage 5 chronic kidney disease, or end stage renal disease; I42.9 Cardiomyopathy, unspecified; E11.22 Type 2 diabetes mellitus with diabetic chronic kidney disease; Z99.2 Dependence on renal dialysis; F10.10 Alcohol abuse, uncomplicated; Z66 Do not resuscitate; E66.9 Obesity, unspecified; Z88.1 Allergy status to other antibiotic agents; I25.10 Atherosclerotic heart disease of native coronary artery without angina pectoris; I50.9 Heart failure, unspecified; E11.42 Type 2 diabetes mellitus with diabetic polyneuropathy; E11.319 Type 2 diabetes mellitus with unspecified diabetic retinopathy without macular edema; I48.0 Paroxysmal atrial fibrillation; Z79.4 Long term (current) use of insulin; Z79.01 Long term (current) use of anticoagulants; Z89.411 Acquired absence of right great toe; Z68.27 Body mass index [BMI] 27.0-27.9, adult; Z98.890 Other specified postprocedural states
CPT/HCPCS: 36415; 36416; 80053; 85025; J1815; J7620

== ENCOUNTER 2021-12-30 09:59 | Inpatient (IN) | payer MEDICARE, OTHER ==
[2021-12-30] MEDS ORDERED: Ondansetron PF 4 MG/2 ML Vial IVP PRN (13:20)
[2021-12-30] MEDS ORDERED: Ondansetron ODT 4 MG TAB PO PRN (13:20)
[2021-12-30] MEDS ORDERED: Dextrose 50% Abboject 50 ML SYRINGE SLOW IVP PRN (13:29)
[2021-12-30] MEDS ORDERED: HumaLOG 300 UNITS/3 ML VIAL SC PRN (13:29)
[2021-12-30] MEDS ORDERED: Loperamide HCl 2 MG CAP PO PRN (13:42)
[2021-12-30] MEDS ORDERED: Senokot S 8.6-50 MG TAB PO PRN (13:42)
[2021-12-30] MEDS ORDERED: NIFEdipine XL 30 MG TAB PO SCH (14:00)
[2021-12-30] MEDS: Acetaminophen 500 MG TAB PO PRN ×2 (15:15→22:47)
[2021-12-30] MEDS: HumaLOG 300 UNITS/3 ML VIAL SC PRN (17:10)
[2021-12-30] MEDS ORDERED: Cepastat Lozenges 1 LOZ PO PRN (18:40)
[2021-12-30 19:38] LABS: SARS-CoV-2 NAA Rapid Test Not Detected (NotDetected)
[2021-12-30] MEDS: Voriconazole 50 MG TAB PO SCH (20:45)
[2021-12-30] MEDS: Lantus 1000 UNITS/10 ML VIAL SC SCH (20:50)
[2021-12-30] MEDS ORDERED: Ondansetron ODT 4 MG TAB SL PRN (21:00)
[2021-12-31] MEDS ORDERED: traMADol HCl 50 MG TAB PO SCH (01:30)
[2021-12-31] MEDS ORDERED: Lidocaine 2% Jelly 5 ML TUBE TOP PRN (02:47)
[2021-12-31 06:38] LABS: ALT (SGPT) 19 U/L (8-55); AST (SGOT) 20 U/L (5-34); Albumin 2.6 g/dL (3.4-4.8); Alkaline Phosphatase 178 U/L (40-110); Anion Gap 14 mmol/L (10-20); BUN (Urea Nitrogen) 29 mg/dL (8.4-25.7); Bilirubin, Total 1.1 mg/dL (0.2-1.2); Calc. Creatinine Clearance 97 mL/min (70-130); Calcium 9.5 mg/dL (7.8-10.44); Carbon Dioxide 22 mmol/L (23-31); Chloride 104 mmol/L (98-107); Globulin 3.5 g/dL (2.4-3.5); Glucose 108 mg/dL (80-115); Potassium 5.3 mmol/L (3.5-5.1); Protein, Total 6.1 g/dL (5.8-8.1); Sodium 135 mmol/L (136-145)
[2021-12-31 07:03] LABS: #Basophils 0.1 thou/uL (0.0-0.2); #Eosinphils 0.4 thou/uL (0.0-0.7); #Lymphocytes 1.4 thou/uL (1.20-3.40); #Monocytes 0.3 thou/uL (0.11-0.59); %Basophils 1.1 % (0.0-1.0); %Eosinophils 3.9 % (0.0-10.0); %Lymphocytes 15.2 % (21.0-51.0); %Monocytes 3.6 % (0.0-10.0); %Neutrophils 76.2 % (42.0-75.0); Hemoglobin 7.4 g/dL (14.0-18.0); Mean Corpuscular HGB CONC 29.1 g/dL (32.0-36.0); Mean Corpuscular Hemoglobin 31.1 pg (27.0-31.0); Mean Platelet Volume 9.2 fL (7.4-10.4); Platelet Count 164 thou/uL (130-400); Red Blood Cell (RBC) Count 2.39 mill/uL (4.70-6.10); White Blood Cell (WBC) Count 9.1 thou/uL (4.8-10.8)
[2021-12-31] MEDS: Voriconazole 50 MG TAB PO SCH ×2 (08:55→20:47)
[2021-12-31] MEDS: Tacrolimus 0.5 MG CAP PO SCH (08:56)
[2021-12-31] MEDS: Cholecalciferol 1,000 UNITS (25 MCG) TAB PO SCH (08:56)
[2021-12-31] MEDS: predniSONE 5 MG TAB PO SCH (08:56)
[2021-12-31] MEDS: Metamucil PACK PO SCH (08:57)
[2021-12-31] MEDS ORDERED: Tamsulosin HCl 0.4 MG CAP PO SCH (09:00)
[2021-12-31] MEDS: Acetaminophen 500 MG TAB PO PRN (11:10)
[2021-12-31] MEDS: LOKELMA 10 GM PO SCH (11:34)
[2021-12-31 12:26] LABS: Potassium 5.4 mmol/L (3.5-5.1)
[2021-12-31] MEDS ORDERED: Ondansetron ODT 4 MG TAB SL PRN ×2 (14:09→14:19)
[2021-12-31] MEDS: Lantus 1000 UNITS/10 ML VIAL SC SCH (20:47)
[2021-12-31] MEDS: traMADol HCl 50 MG TAB PO PRN (20:49)
[2021-12-31] MEDS ORDERED: VOLTAREN GEL TOP SCH (21:00)
[2022-01-01] MEDS: Acetaminophen 500 MG TAB PO PRN ×2 (01:58→16:35)
[2022-01-01 06:23] LABS: Anion Gap 15 mmol/L (10-20); BUN (Urea Nitrogen) 28 mg/dL (8.4-25.7); Calc. Creatinine Clearance 99 mL/min (70-130); Calcium 9.4 mg/dL (7.8-10.44); Carbon Dioxide 23 mmol/L (23-31); Potassium 5.2 mmol/L (3.5-5.1)
[2022-01-01 06:26] LABS: #Basophils 0.1 thou/uL (0.0-0.2); #Eosinphils 0.3 thou/uL (0.0-0.7); #Monocytes 0.3 thou/uL (0.11-0.59); #Neutrophils 6.2 thou/uL (1.40-6.50); %Eosinophils 4.3 % (0.0-10.0); %Lymphocytes 12.4 % (21.0-51.0); %Monocytes 3.2 % (0.0-10.0); %Neutrophils 79.1 % (42.0-75.0); Hemoglobin 7.8 g/dL (14.0-18.0); Mean Corpuscular HGB CONC 29.2 g/dL (32.0-36.0); Mean Corpuscular Hemoglobin 31.7 pg (27.0-31.0); Mean Platelet Volume 8.8 fL (7.4-10.4); Platelet Count 170 thou/uL (130-400); RBC Distribution Width 23.3 % (11.5-14.5); Red Blood Cell (RBC) Count 2.47 mill/uL (4.70-6.10); White Blood Cell (WBC) Count 7.9 thou/uL (4.8-10.8)
[2022-01-01 06:36] LABS: Chloride 104 mmol/L (98-107); Glucose 112 mg/dL (80-115); Magnesium 1.9 mg/dL (1.6-2.6); Sodium 137 mmol/L (136-145)
[2022-01-01] MEDS: predniSONE 5 MG TAB PO SCH (08:59)
[2022-01-01] MEDS: Cholecalciferol 1,000 UNITS (25 MCG) TAB PO SCH (09:00)
[2022-01-01] MEDS: LOKELMA 10 GM PO SCH (09:00)
[2022-01-01] MEDS ORDERED: Iopamidol 370 76% 100 ML VIAL ONE (09:00)
[2022-01-01] MEDS: Metamucil PACK PO SCH (09:00)
[2022-01-01] MEDS: Tacrolimus 0.5 MG CAP PO SCH (09:00)
[2022-01-01] MEDS: Voriconazole 50 MG TAB PO SCH ×2 (09:01→21:02)
[2022-01-01] MEDS: traMADol HCl 50 MG TAB PO PRN ×2 (09:12→14:29)
[2022-01-01] MEDS: HumaLOG 300 UNITS/3 ML VIAL SC PRN (17:30)
[2022-01-01] MEDS: Lantus 1000 UNITS/10 ML VIAL SC SCH (21:03)
[2022-01-02] MEDS: Cholecalciferol 1,000 UNITS (25 MCG) TAB PO SCH (08:13)
[2022-01-02] MEDS: LOKELMA 10 GM PO SCH (08:13)
[2022-01-02] MEDS: Voriconazole 50 MG TAB PO SCH ×2 (08:14→21:10)
[2022-01-02] MEDS: Tacrolimus 0.5 MG CAP PO SCH (08:15)
[2022-01-02] MEDS: predniSONE 5 MG TAB PO SCH (08:15)
[2022-01-02] MEDS: Metamucil PACK PO SCH (08:16)
[2022-01-02] MEDS: Folic Acid 1 MG TAB PO SCH (08:17)
[2022-01-02 12:56] LABS: Reference Lab Name LABCORP
[2022-01-02 12:57] LABS: Ref Lab Test Ordered VORICONAZOLE
[2022-01-02 13:49] LABS: Anion Gap 15 mmol/L (10-20); BUN (Urea Nitrogen) 20 mg/dL (8.4-25.7); Calc. Creatinine Clearance 111 mL/min (70-130); Calcium 9.6 mg/dL (7.8-10.44); Carbon Dioxide 22 mmol/L (23-31); Chloride 106 mmol/L (98-107); Glucose 129 mg/dL (80-115); Potassium 4.6 mmol/L (3.5-5.1); Sodium 138 mmol/L (136-145)
[2022-01-02] MEDS: HumaLOG 300 UNITS/3 ML VIAL SC PRN (17:11)
[2022-01-02] MEDS: Lantus 1000 UNITS/10 ML VIAL SC SCH (21:22)
[2022-01-03 06:24] LABS: Anion Gap 16 mmol/L (10-20); BUN (Urea Nitrogen) 18 mg/dL (8.4-25.7); Calc. Creatinine Clearance 110 mL/min (70-130); Calcium 9.6 mg/dL (7.8-10.44); Carbon Dioxide 23 mmol/L (23-31); Chloride 106 mmol/L (98-107); Glucose 110 mg/dL (80-115); Potassium 4.5 mmol/L (3.5-5.1); Sodium 140 mmol/L (136-145)
[2022-01-03 06:46] LABS: #Eosinphils 0.3 thou/uL (0.0-0.7); #Lymphocytes 1.1 thou/uL (1.20-3.40); #Monocytes 0.2 thou/uL (0.11-0.59); #Neutrophils 5.5 thou/uL (1.40-6.50); %Basophils 0.5 % (0.0-1.0); %Eosinophils 4.5 % (0.0-10.0); %Monocytes 2.6 % (0.0-10.0); %Neutrophils 77.3 % (42.0-75.0); Hemoglobin 8.3 g/dL (14.0-18.0); Mean Corpuscular HGB CONC 28.7 g/dL (32.0-36.0); Mean Corpuscular Hemoglobin 31.3 pg (27.0-31.0); Mean Platelet Volume 8.6 fL (7.4-10.4); Platelet Count 174 thou/uL (130-400); RBC Distribution Width 23.2 % (11.5-14.5); Red Blood Cell (RBC) Count 2.66 mill/uL (4.70-6.10); White Blood Cell (WBC) Count 7.1 thou/uL (4.8-10.8)
[2022-01-03] MEDS: predniSONE 5 MG TAB PO SCH (09:29)
[2022-01-03] MEDS: Tacrolimus 0.5 MG CAP PO SCH (09:29)
[2022-01-03] MEDS: Voriconazole 50 MG TAB PO SCH ×2 (09:30→21:24)
[2022-01-03] MEDS: Folic Acid 1 MG TAB PO SCH (09:30)
[2022-01-03] MEDS: Cholecalciferol 1,000 UNITS (25 MCG) TAB PO SCH (09:30)
[2022-01-03] MEDS: Metamucil PACK PO SCH (09:32)
[2022-01-03] MEDS: traMADol HCl 50 MG TAB PO PRN ×2 (09:37→14:30)
[2022-01-03 10:20] LABS: Tacrolimus 3.6 ng/mL (2.0-20.0)
[2022-01-03] MEDS: LOKELMA 10 GM PO SCH (11:17)
[2022-01-03] MEDS: HumaLOG 300 UNITS/3 ML VIAL SC PRN (16:47)
[2022-01-03] MEDS: Lantus 1000 UNITS/10 ML VIAL SC SCH (21:24)
[2022-01-04] MEDS: traMADol HCl 50 MG TAB PO PRN ×2 (09:06→15:00)
[2022-01-04] MEDS: predniSONE 5 MG TAB PO SCH (09:08)
[2022-01-04] MEDS: Tacrolimus 0.5 MG CAP PO SCH (09:08)
[2022-01-04] MEDS: Voriconazole 50 MG TAB PO SCH ×2 (09:08→20:56)
[2022-01-04] MEDS: Cholecalciferol 1,000 UNITS (25 MCG) TAB PO SCH (09:09)
[2022-01-04] MEDS: Folic Acid 1 MG TAB PO SCH (09:09)
[2022-01-04] MEDS: LOKELMA 10 GM PO SCH (09:53)
[2022-01-04] MEDS: Metamucil PACK PO SCH (09:53)
[2022-01-04] MEDS ORDERED: cloNIDine 0.1 MG TAB PO PRN (12:51)
[2022-01-04] MEDS: Lantus 1000 UNITS/10 ML VIAL SC SCH (20:50)
[2022-01-05 06:42] LABS: Anion Gap 19 mmol/L (10-20); BUN (Urea Nitrogen) 26 mg/dL (8.4-25.7); Calc. Creatinine Clearance 74 mL/min (70-130); Calcium 9.9 mg/dL (7.8-10.44); Carbon Dioxide 21 mmol/L (23-31); Chloride 105 mmol/L (98-107); Glucose 88 mg/dL (80-115); Potassium 5.1 mmol/L (3.5-5.1); Sodium 140 mmol/L (136-145)
[2022-01-05 06:53] LABS: #Basophils 0.1 thou/uL (0.0-0.2); #Lymphocytes 1.3 thou/uL (1.20-3.40); #Monocytes 0.4 thou/uL (0.11-0.59); #Neutrophils 17.7 thou/uL (1.40-6.50); %Basophils 0.5 % (0.0-1.0); %Eosinophils 0.2 % (0.0-10.0); %Lymphocytes 6.9 % (21.0-51.0); %Monocytes 2.2 % (0.0-10.0); %Neutrophils 90.4 % (42.0-75.0); Hemoglobin 9.3 g/dL (14.0-18.0); Mean Corpuscular HGB CONC 28.8 g/dL (32.0-36.0); Mean Corpuscular Hemoglobin 32.2 pg (27.0-31.0); Platelet Count 176 thou/uL (130-400); RBC Distribution Width 22.4 % (11.5-14.5); Red Blood Cell (RBC) Count 2.89 mill/uL (4.70-6.10); White Blood Cell (WBC) Count 19.6 thou/uL (4.8-10.8)
[2022-01-05] MEDS: Voriconazole 50 MG TAB PO SCH ×2 (08:50→21:23)
[2022-01-05] MEDS: Tacrolimus 0.5 MG CAP PO SCH (08:50)
[2022-01-05] MEDS: NIFEdipine XL 30 MG TAB PO SCH (08:50)
[2022-01-05] MEDS: predniSONE 5 MG TAB PO SCH (08:51)
[2022-01-05] MEDS: Cholecalciferol 1,000 UNITS (25 MCG) TAB PO SCH (08:51)
[2022-01-05] MEDS: Folic Acid 1 MG TAB PO SCH (08:51)
[2022-01-05] MEDS: LOKELMA 10 GM PO SCH (08:55)
[2022-01-05] MEDS: Metamucil PACK PO SCH (08:55)
[2022-01-05 11:24] LABS: ALT (SGPT) 102 U/L (8-55); AST (SGOT) 149 U/L (5-34); Albumin 2.8 g/dL (3.4-4.8); Alkaline Phosphatase 672 U/L (40-110); Bilirubin, Direct 1.8 mg/dL (0.1-0.3); Bilirubin, Total 2.4 mg/dL (0.2-1.2); Protein, Total 6.8 g/dL (5.8-8.1)
[2022-01-06 06:24] LABS: #Lymphocytes 0.8 thou/uL (1.20-3.40); #Monocytes 0.3 thou/uL (0.11-0.59); #Neutrophils 18.4 thou/uL (1.40-6.50); %Basophils 0.2 % (0.0-1.0); %Eosinophils 0.1 % (0.0-10.0); %Lymphocytes 3.8 % (21.0-51.0); %Monocytes 1.7 % (0.0-10.0); %Neutrophils 94.1 % (42.0-75.0); Hemoglobin 8.6 g/dL (14.0-18.0); Mean Corpuscular HGB CONC 28.2 g/dL (32.0-36.0); Mean Corpuscular Hemoglobin 31.7 pg (27.0-31.0); Mean Platelet Volume 8.1 fL (7.4-10.4); Platelet Count 178 thou/uL (130-400); RBC Distribution Width 22.4 % (11.5-14.5); Red Blood Cell (RBC) Count 2.72 mill/uL (4.70-6.10); White Blood Cell (WBC) Count 19.6 thou/uL (4.8-10.8)
[2022-01-06 06:26] VITALS: BMI 21.7
[2022-01-06 06:26] LABS: ALT (SGPT) 59 U/L (8-55); AST (SGOT) 49 U/L (5-34); Albumin 2.6 g/dL (3.4-4.8); Alkaline Phosphatase 498 U/L (40-110); Anion Gap 18 mmol/L (10-20); BUN (Urea Nitrogen) 38 mg/dL (8.4-25.7); Bilirubin, Total 2.5 mg/dL (0.2-1.2); Calc. Creatinine Clearance 53 mL/min (70-130); Calcium 9.6 mg/dL (7.8-10.44); Carbon Dioxide 20 mmol/L (23-31); Chloride 103 mmol/L (98-107); Globulin 3.7 g/dL (2.4-3.5); Glucose 148 mg/dL (80-115); Potassium 5.2 mmol/L (3.5-5.1); Protein, Total 6.3 g/dL (5.8-8.1); Sodium 136 mmol/L (136-145)
[2022-01-06] MEDS: traMADol HCl 50 MG TAB PO PRN ×2 (07:01→16:48)
[2022-01-06] MEDS: Metamucil PACK PO SCH (09:00)
[2022-01-06] MEDS: LOKELMA 10 GM PO SCH (09:00)
[2022-01-06] MEDS: Tacrolimus 0.5 MG CAP PO SCH (09:02)
[2022-01-06] MEDS: Voriconazole 50 MG TAB PO SCH ×2 (09:02→21:43)
[2022-01-06] MEDS: NIFEdipine XL 30 MG TAB PO SCH (09:02)
[2022-01-06] MEDS: Folic Acid 1 MG TAB PO SCH (09:03)
[2022-01-06] MEDS: predniSONE 5 MG TAB PO SCH (09:03)
[2022-01-06] MEDS: Cholecalciferol 1,000 UNITS (25 MCG) TAB PO SCH (09:03)
[2022-01-06] MEDS ORDERED: Sodium Chloride 0.9% 1,000 ML IV SCH (10:30)
[2022-01-06] MEDS: HumaLOG 300 UNITS/3 ML VIAL SC PRN (17:21)
[2022-01-06 17:26] LABS: Anion Gap 20 mmol/L (10-20); BUN (Urea Nitrogen) 42 mg/dL (8.4-25.7); Calc. Creatinine Clearance 44 mL/min (70-130); Calcium 9.6 mg/dL (7.8-10.44); Carbon Dioxide 18 mmol/L (23-31); Chloride 104 mmol/L (98-107); Glucose 174 mg/dL (80-115); Potassium 5.1 mmol/L (3.5-5.1); Sodium 137 mmol/L (136-145)
[2022-01-06 17:42] LABS: Troponin I 0.068 ng/mL (< 0.028)
[2022-01-06 20:40] VITALS: BP 102/68; TEMP 97.4
[2022-01-06] MEDS ORDERED: Piperacillin/Tazobactam 3.375 GM in Sodium Chloride 0.9% 100 ML IVPB SCH (21:15)
[2022-01-07] MEDS ORDERED: Piperacillin/Tazobactam 3.375 GM in Sodium Chloride 0.9% 100 ML IVPB SCH (02:00)
[2022-01-08 15:40] LABS: Tacrolimus 5.4 ng/mL (2.0-20.0)
== END 2022-01-07 00:37 | disposition short-term general hospital (02) | DRG 868 ==
LOC: NAV ACUTE 11:39 → UNDOADMIN 11:39
PROVIDERS: ADMIT Student in an Organized Health Care Education/Training Program; ATTEND Family Medicine
PROC: 0T2BX0Z Change Drainage Device in Bladder, External Approach (ICD-10-PCS; principal; 2022-01-01)
DX: B48.8 Other specified mycoses (principal); D84.9 Immunodeficiency, unspecified; D61.818 Other pancytopenia; N17.9 Acute kidney failure, unspecified; T86.19 Other complication of kidney transplant; R53.81 Other malaise; Z79.899 Other long term (current) drug therapy; F32.A Depression, unspecified; K21.9 Gastro-esophageal reflux disease without esophagitis; I10 Essential (primary) hypertension; E11.40 Type 2 diabetes mellitus with diabetic neuropathy, unspecified; G47.33 Obstructive sleep apnea (adult) (pediatric); R91.1 Solitary pulmonary nodule; E87.5 Hyperkalemia; R33.9 Retention of urine, unspecified; Z66 Do not resuscitate; F41.9 Anxiety disorder, unspecified; D52.9 Folate deficiency anemia, unspecified; E11.649 Type 2 diabetes mellitus with hypoglycemia without coma; Y83.8 Other surgical procedures as the cause of abnormal reaction of the patient, or of later complication, without mention of misadventure at the time of the procedure; Z20.822 Contact with and (suspected) exposure to COVID-19; Z98.890 Other specified postprocedural states; Z98.42 Cataract extraction status, left eye; Z98.41 Cataract extraction status, right eye
CPT/HCPCS: 36415; 36416; 71045; 74177; 80048; 80053; 80076; 80197; 82607; 82746; 83605; 83735; 83880; 84484; 85025; 87040; 87077; 87086; 87186; 97602; J1815; J2543; J3490; J7050; J7507; J7512; Q0162; Q9967; U0002